=== PATIENT | male | born 1985 | race Caucasian/White ===

== ENCOUNTER 2017-09-04 15:48 | Inpatient (IN) | payer BC ==
--- OUTSIDE RECORDS SUMMARY | 2017-09-04 15:50 | XMS REPORT ---
:1985 [facility] [address] [place] [address] Care Team Providers Name Role Phone UNKNOWN, REFFERING Primary Care Provider Unavailable NAMAN MEJIA M.D. Unavailable Unavailable Problems This patient has no known problems. Allergies, Adverse Reactions, Alerts This patient has no known allergies or adverse reactions. Medications This patient has no known medications. Encounters Start End Encounter Admission Attending Care Care Encounter Date/Time Date/Time Type Type Clinicians Facility Department ID 2017-05-22 2017-06-01 [id number] 03:01:00 13:18:00 NAMAN Craven M.D. Results Test Description Test Time Test Comments Text Results Atomic Results Result Comments RPR, Qual 2017-05-22 14:15:00 Test Item Value Reference Range Comments RPR (test code=RPR) Non-Reactive Non-Reactive Thyroid Stimulating Hormone (TSH)2017-05-22 13:03:00 Test Item Value Reference Range Comments TSH (test code=TSH) 1.67 mIU/mL 0.270-4.200 Lipid [id number] 12:55:00 Test Item Value Reference Range Comments Cholesterol (test 234 mg/dL 0-200 code=CHOL) Triglycerides (test 185 mg/dL 9-200 code=TRIG) HDL (test code=HDL) 51 mg/dL 40-60 Chol/HDL (test 4.6 Ratio 0.0-5.0 code=CHOLPHDL) LDL, Calculated (test 146 0-130 (NOTE)RISK OF HEART code=LDLC) DISEASEPublished by Palestinian Heart AssociationAnalyte Optimal Boderline Increased RiskCHOL <200 200-239 >240TRIG <150 150-199 >200HDL Male: >60 <40HDL Female: >60 <50LDL <100 130-159 >160LDL NEAR OPTIMAL IS 100-129 VLDL (test code=VLDL) 37 mg/dL 5-40 LDL/HDL (test code=LDLPHDL) 3 [id number] 01:55:00 Test Item Value Reference Range Comments Amphetamine (test Negative Negative For diagnostic purposes code=AMPH) only, positive results should always be assessedin conjunctionwith the patient's medical history,clinical examination and otherfindings.To fulfill legal requirements, a more specific alternate chemical methodmust be used inorder to obtain a Confirmed analytical result. GC/MS is the preferred confirmatory method. Barbiturates (test Negative Negative code=MUSTAPHA) Benzodiazepine (test POSITIVE Negative code=JUVENTINO) Cocaine (test code=COCA) Negative Negative Methadone (test code=MTHD) Negative Negative Opiates (test code=OPIA) Negative Negative PCP (test code=PCP) Negative Negative Propoxyphene (test Negative Negative code=PROPOX) THC (test code=THC) Negative Negative Alcohol, Urine (test <0.01 g/dL 0.00-0.01 code=ETOHU) Comprehensive Metabolic [id number] 01:30:00 Test Item Value Reference Range Comments Sodium (test code=NA) 142 mmol/L 135-145 Potassium (test code=K) 4.4 mmol/L 3.5-5.1 Chloride (test code=CL) 105 mmol/L 98-105 Carbon Dioxide (test 29 mmol/L 22-29 code=CO2) Glucose (test code=GLU) 96 mg/dL 70-115 Blood Urea Nitrogen 16 mg/dL 6-20 (test code=BUN) Creatinine (test 0.9 mg/dL 0.7-1.2 code=CREAT) Calcium (test code=CA) 9.9 mg/dL 8.3-10.5 Prot Total (test 7.1 g/dL 6.4-8.3 code=TP) Albumin (test code=ALB) 4.5 g/dL 3.5-5.2 A/G Ratio (test 1.7 Ratio code=AGRATIO) Globulin (test 2.6 2.9-3.1 code=GLOB) Bili Total (test <0.1 mg/dL 0.1-0.9 code=TBIL) Alk Phos (test 91 U/L 40-129 code=APHOS) AST (test code=AST) 14 U/L 1-40 ALT (test code=ALT) 18 U/L 1-41 BUN/Creatinine Ratio 17.8 (test code=BCRATIO) Anion Gap (test 8 mmol/L 7-16 code=AGAP) Estimated GFR (test >60 eGFR (estimated Glomerular code=GFR) mL/min/1.73m2 Filtration Rate) is an estimated value,calculated from the patient's serum creatinine using the MDRD equation.It is NOT the patient's actual GFR. The eGFR provides a more clinicallyuseful measure of kidney disease than serum creatinine alone.This calculation takes sex and race into account, if the informationis provided. If the race is not provided, and the patient isAfrican-Palestinian, multiply by 1.212. If sex is not provided, and thepatient is female, multiply by 0.742. Results for patients <18 years ofage have not been validated by the MDRD study and should be interpretedwith caution.eGFR Result Interpretation:eGFR > or=60 is in the Normal RangeeGFR < 60 may mean kidney diseaseeGFR < 15 may mean kidney failureRanges recommended by the National Kidney Foundation,http://nkdep.ni h.gov Alcohol/Ethanol, [id number] 01:21:00 Test Item Value Reference Range Comments Alcohol, Ethyl (test <0.01 g/dL 0.00-0.01 Intoxicated 0.080 g/dL or code=ETOH) more Urinalysis [id number] 01:15:00 Test Item Value Reference Range Comments Color (test code=COLOR) Yellow Yellow,Straw,Pl yellow Clarity (test code=CLAR) Clear Clear Specific [place] (test code=SPGR) 1.024 1.001-1.035 pH (test code=PH) 7.0 5.0-9.0 Ketone (test code=KET) Negative mg/dL Negative Glucose (test code=GLUCUR) Negative mg/dL Negative Protein (test code=PROT) Negative mg/dL Negative Bilirubin (test code=BILI) Negative mg/dL Negative Occult Blood (test code=UDOB) Negative Negative Urobilinogen (test code=UROB) 0.2 mg/dL 0.2-1.0 Nitrite (test code=NIT) Negative Negative Leuk Esterase (test code=LEUK) Negative Negative Micros Exam (test code=MEXAM) Not indicated CBC with [id number] 01:15:00 Test Item Value Reference Range Comments WBC (test code=WBC) 10.5 K/cumm 4.4-10.5 RBC (test code=RBC) 5.29 M/cumm 4.10-5.70 Hemoglobin (test code=HGB) 15.1 gm/dL 13.4-17.4 Hematocrit (test code=HCT) 45.7 % 38.7-52.0 MCV (test code=MCV) 86.5 fL 80-100 MCH (test code=MCH) 28.6 pg 27.0-32.5 MCHC (test code=MCHC) 33.0 g/dL 32.0-37.5 RDW (test code=RDW) 12.9 % 11.5-14.5 Platelet Count (test code=PLTCT) 278 K/cumm 140-440 MPV (test code=MPV) 9.7 fL Diff Method (test code=DIFFM) Auto Neutrophil (test code=NEUT) 58.2 % 36-70 Lymphocyte (test code=LYMPH) 28.5 % 12-44 Monocyte (test code=MONO) 6.8 % 0-11 Eosinophil (test code=EOS) 5.8 % 0-7 Basophil (test code=BASO) 0.6 % 0-2 Neutro Abs (test code=ANEUT) 6.1 K/cumm 1.6-7.4 Lymph Abs (test code=ALYMPH) 3.0 K/cumm 0.5-4.6 [place] Abs (test code=AMONO) 0.7 K/cumm 0.0-1.2 Eos Abs (test code=AEOS) 0.61 K/cumm 0.00-0.74 Baso Abs (test code=ABASO) 0.1 K/cumm 0.00-0.21
--- NOTE | 2017-09-04 16:31 | RAD REPORT ---
EXAM DESCRIPTION: RAD - Chest Single View - 09/04/2017 4:11 pm CLINICAL HISTORY: Fever COMPARISON: None. TECHNIQUE: AP portable chest image was obtained 1607 hours . FINDINGS: Lung volumes are low. No peripheral mass or consolidation. Failure is not suspected. Heart and vasculature are normal. No measurable pleural effusion and no pneumothorax. No gross bony abnorm ality seen. No acute aortic findings suspected. IMPRESSION: Shallow inspiration film without acute cardiopulmonary finding.
[2017-09-04] MEDS ORDERED: PROMETHAZINE 25 MG/ML VIAL ONE (16:35)
[2017-09-04] MEDS ORDERED: NA CHLORIDE 0.9% 2,000 ML ONE (16:36)
[2017-09-04] MEDS ORDERED: ACETAMINOPHEN 500 MG TAB ONE (16:36)
--- NOTE | 2017-09-04 16:39 | EKG ---
Test Date: 2017-09-04 Test Time: 14:51:40 Pulp House Supervisor: JEROME MEASUREMENT RESULTS: Intervals: Rate: 135 WA: 134 QRSD: 78 QT: 280 QTc: 420 [place]: P: 45 WA: 134 QRS: 7 T: -4 INTERPRETIVE STATEMENTS: Sinus tachycardia Otherwise normal ECG Compared to ECG 03/13/2016 22:33:27 Sinus rhythm no longer present Electronically Signed On 09-04-17 16:38:29 CDT by David Gastelum
[2017-09-04 17:16] LABS: Absolute Lymphocytes (CBC) 0.7 K/uL (0.7-4.9); Absolute Neutrophil 25.7 K/uL (1.8-8.0); Basophils % 0.1 % (0-1.3); Lymphocytes % 2.6 % (15.3-44.8); MCH 28.1 pg (27.0-35.0); MCV 85.2 fL (80-100); MPV 8.6 fL (7.6-11.3); RBC Red Blood Cell Count 4.93 M/uL (4.33-5.43)
[2017-09-04 17:18] LABS: Potassium 4.6 mEq/L (3.6-5.0)
[2017-09-04 17:25] LABS: Albumin 3.2 g/dL (3.2-5.5); Bilirubin Direct 0.4 mg/dL (0-0.2); Protein, Total 5.8 g/dL (6.0-8.3)
[2017-09-04 17:42] LABS: Blood Morphology Comment NOT SEEN (NOT SEEN); Platelet Estimate ADEQ
--- NOTE | 2017-09-04 18:22 | RAD REPORT ---
EXAM DESCRIPTION: CT - Abdomen Pelvis Wo Contrast - 09/04/2017 6:06 pm CLINICAL HISTORY: Abdominal pain nausea and vomiting since yesterday COMPARISON: 2013 TECHNIQUE: Computed axial tomography of the abdomen and pelvis was obtained. IV and oral contrast we re not requested. All CT scans are performed using dose optimization technique as appropriate and may include automated exposure control or mA/KV adjustment according to patient size. FINDINGS: The evaluation of solid organs, vessels and bowel is limited secondary to the lack of con trast administration. The liver, spleen, pancreas, adrenals and kidneys appear grossly normal. The appendix has been removed. There is no evidence of diverticulitis. A small left inguinal hernia contains fat IMPRESSION: No acute abnormality is displayed.
[2017-09-04 18:39] LABS: Barbiturates NEGATIVE; Benzodiazepines POSITIVE; Cocaine NEGATIVE; METHAMPHETAM NEGATIVE; Opiates POSITIVE; Phencyclidine NEGATIVE; THC Cannibis NEGATIVE
[2017-09-04 18:44] LABS: Urine Blood NEGATIVE (NEG); Urine Glucose NEGATIVE (NEG); Urine Protein 1+ (NEG); Urine Specific Gravity <1.005 (1.005-1.030)
[2017-09-04] MEDS ORDERED: NA CHLORIDE 0.9% 500 ML ONE (19:17)
[2017-09-04] MEDS ORDERED: VANCOMYCIN/NS 1 gm 1 GM/250 ML BAG ONE (19:17)
[2017-09-04] MEDS ORDERED: PIPERACILLIN-TAZO-DEXTROSE,ISO 3.375 GM/50 ML BAG ONE (19:18)
[2017-09-04 19:22] LABS: Arterial Blood Carboxyhemoglob 0.8 % (0-1.5); Blood Gas Oxyhemoglobin 93.6 % (94-97); Blood O2 Saturation 95.1 % (92-98.5)
[2017-09-04] MEDS ORDERED: NOREPINEPHRINE 4mg/D5W 250mL 4 MG/250 ML BAG IV ONE (20:17)
[2017-09-04] MEDS ORDERED: FENTANYL CITR 100 MCG/2 ML ONE (20:47)
--- NOTE | 2017-09-04 20:50 | ER ---
Nurse's Notes [facility] Name: Gildardo López Age: 31 yrs Sex: Male : 1985 Arrival Date: 09/04/2017 Time: 15:56 Bed 2 Private MD: Diagnosis: Bacteremia;Sepsis;Hypotension Presentation: 09/04 16:00 Presenting complaint: EMS states: N/V since yesterday. Transition of care: patient was kb1 not received from another setting of care. Onset of symptoms was September 03, 2017 at 12:00. Care prior to arrival: Medication(s) given: zofran 4 mg, IV initiated. 18 GA, in the left antecubital area. 16:00 Method Of Arrival: EMS kb1 16:00 Acuity: AYE 3 kb1 Triage Assessment: 16:04 General: Appears uncomfortable, Behavior is cooperative. Pain: Complains of pain in kb1 headache. Neuro: Level of Consciousness is awake, alert, obeys commands, Oriented to person, place, time, situation. Cardiovascular: Patient's skin is warm and dry. Rhythm is sinus tachycardia. Respiratory: Respiratory effort is even, unlabored, Respiratory pattern is regular, symmetrical. GI: Reports nausea, vomiting. : No signs and/or symptoms were reported regarding the genitourinary system. Historical: - Allergies: 16:04 No Known Allergies; kb1 - Home Meds: 16:04 clonazepam 2 mg oral tab Q8H [Active]; Seroquel 400 mg oral tab 2 times per day kb1 [Active]; trazodone 100 mg Oral tab [Active]; gabapentin 300 mg oral cap 3 times per day [Active]; - PMHx: 16:04 Anxiety; Schizophrenia; Seizures; kb1 - PSHx: 16:04 Sinus; kb1 - Immunization history:: Flu vaccine is up to date. - Social history:: Smoking status: Patient uses tobacco products, chewing tobacco. Screenin:06 Abuse screen: Denies threats or abuse. Nutritional screening: No deficits noted. kb1 Tuberculosis screening: No symptoms or risk factors identified. Fall Risk Assessment: 16:06 Reassessment: No changes from previously documented assessment. kb1 17:00 Reassessment: Patient and/or family updated on plan of care and expected duration. Pain kb1 level reassessed. Patient is alert, oriented x 3, equal unlabored respirations, skin warm/dry/pink. 18:15 Reassessment: Patient appears in no apparent distress at this time. Patient and/or kb1 family updated on plan of care and expected duration. Pain level reassessed. Patient is alert, oriented x 3, equal unlabored respirations, skin warm/dry/pink. 18:40 Reassessment: Patient appears in no apparent distress at this time. Devin DAWSON made aware kb1 of blood pressure. 19:10 Reassessment: Patient and/or family updated on plan of care and expected duration. Pain kb1 level reassessed. Patient is alert, oriented x 3, equal unlabored respirations, skin warm/dry/pink. 19:46 Reassessment: Patient appears in no apparent distress at this time. kb1 20:00 General: Appears uncomfortable, Behavior is calm, cooperative, appropriate for age, aj1 Reports chills for 2-3 days, fever for 2-3 days, feeling ill for 2-3 days. Pain: Complains of pain in head Pain does not radiate. Pain currently is 8 out of 10 on a pain scale. Quality of pain is described as aching, Pain began 2-3 days ago. Neuro: Level of Consciousness is awake, alert, obeys commands, Oriented to person, place, time, situation, Speech is normal, Facial symmetry appears normal, Reports headache Denies blurred vision dizziness, photophobia. Cardiovascular: Reports palpitations, States that his heart rate went up to 160 Denies chest pain, Heart tones S1 S2 present Patient's skin is warm and dry. Rhythm is sinus rhythm Chest pain is denied. Respiratory: Airway is patent Respiratory effort is even, unlabored, Respiratory pattern is regular, symmetrical, Breath sounds are clear bilaterally. Denies cough, shortness of breath. GI: No signs and/or symptoms were reported involving the gastrointestinal system. Abdomen is flat, non-distended, Abd is soft and non tender X 4 quads. Patient currently denies diarrhea, nausea, vomiting. : No signs and/or symptoms were reported regarding the genitourinary system. Denies burning with urination. EENT: No signs and/or symptoms were reported regarding the EENT system. Derm: No signs and/or symptoms reported regarding the dermatologic system. Skin is flushed. Musculoskeletal: No signs and/or symptoms reported regarding the musculoskeletal system. Circulation, motion, and sensation intact. 21:00 Reassessment: Patient appears in no apparent distress at this time. No changes from aj1 previously documented assessment. Patient and/or family updated on plan of care and expected duration. Pain level reassessed. Patient is alert, oriented x 3, equal unlabored respirations, skin warm/dry/pink. 22:42 Reassessment: Patient and/or family updated on plan of care and expected duration. Pain ea level reassessed. Patient is alert, oriented x 3, equal unlabored respirations, skin warm/dry/pink. 23:00 Reassessment: Patient and/or family updated on plan of care and expected duration. Pain ea level reassessed. Patient is alert, oriented x 3, equal unlabored respirations, skin warm/dry/pink. 23:15 Reassessment: Patient and/or family updated on plan of care and expected duration. Pain ea level reassessed. Patient is alert, oriented x 3, equal unlabored respirations, skin warm/dry/pink. Vital Signs: 16:04 BP 136 / 84; Pulse 137; Resp 20; Temp 103.3; Pulse Ox 96% on R/A; Weight 83.91 kg; kb1 Height 5 ft. 8 in. (172.72 cm); Pain 6/10; 17:00 BP 91 / 61; Pulse 120; Resp 26; Pulse Ox 97% ; kb1 17:04 BP 91 / 61; Pulse 119; Resp 26; Pulse Ox 97% on R/A; ae1 18:10 Temp 100.5; kb1 18:14 BP 90 / 61; Pulse 108; Resp 24; Pulse Ox 97% ; kb1 18:41 BP 86 / 57; Pulse 105; Resp 24; Pulse Ox 94% ; kb1 19:19 BP 82 / 58; Pulse 94; Resp 24; Pulse Ox 97% ; kb1 19:54 BP 81 / 47; Pulse 93; Resp 24; Pulse Ox 100% on R/A; aj 20:10 BP 84 / 57; Pulse 92; Resp 30; Pulse Ox 99% ; aj1 20:20 BP 90 / 60; Pulse 92; Resp 28; Pulse Ox 98% ; aj1 20:39 BP 113 / 80; Pulse 80; Resp 22; Pulse Ox 99% ; aj1 20:39 Temp 98.0(O); aj1 21:08 BP 108 / 79; Pulse 81; Resp 27; Pulse Ox 97% on R/A; aj1 21:16 BP 112 / 77; Pulse 90; Resp 17; Pulse Ox 98% on R/A; aj 21:44 BP 100 / 65; Pulse 91; Resp 18; Pulse Ox 96% on R/A; aj 22:34 BP 101 / 55; Pulse 92; Resp 27; Temp 98.2; Pulse Ox 98% on R/A; oe 23:26 BP 100 / 62; Pulse 90; Resp 20; Temp 98.0; Pulse Ox 98% on R/A; ea 16:04 Body Mass Index 28.13 (83.91 kg, 172.72 cm) kb1 ED Course: 15:56 Patient arrived in ED. kt1 15:56 Devin Tang PA is PHCP. jr8 15:56 Travis Small MD is Attending Physician. jr8 15:59 Jordyn De Guzman RN is Primary Nurse. kb1 16:01 Triage completed. kb1 16:04 Arm band placed on. kb1 16:06 Patient has correct armband on for positive identification. Bed in low position. Call kb1 light in reach. Side rails up X2. rental agent on. Pulse ox on. NIBP on. 16:06 No provider procedures requiring assistance completed. Maintain EMS IV. Good blood kb1 return noted. Site clean \T\ dry. Gauge \T\ site: 18g Left AC. 16:09 X-ray completed. Portable x-ray completed in exam room. Patient tolerated procedure ag1 well. 16:12 XRAY Chest (1 view) In Process Unspecified. EDMS 18:[address] via wheelchair. jj2 18:06 CT completed. Patient tolerated procedure well. Patient moved back from CT. jj2 18:06 CT Abd/Pelvis - Without Cont In Process Unspecified. EDMS 19:47 Report given to Melina VAZ. kb1 20:33 Assisted provider with central line placement. Set up central line tray. Triple lumen aj line placed in right femoral. Line placed by Devin DAWSON Placement verified by blood return, Dressed with Tegaderm, Blood was collected. Patient tolerated well. Before procedure, did Practitioner(s) obtain informed consent? Yes. Patient \T\ family education about procedure, CLABSI prevention and S/S of infection? Yes. Time-out/Briefing performed prior to start of procedure? Yes. Was handwashing/sanitizing done immediately prior to procedure? Yes. Was patient positioned to in a way to prevent air embolism? Yes. Was procedure site sterilized? Yes, with chlorhexidine. Was the site allowed to dry? Yes. Was local anesthetic and/or sedation utilized? Yes. During the procedure, did the Practitioner(s) maintain a sterile field? Yes. Were unused ports clamped during insertion? Yes. Was a 2nd qualified MD obtained after 3 unsuccessful insertion attempts? No. Was blood aspirated from each lumen? Yes. After the procedure, did the Practitioner(s) clean the site and apply a sterile dressing? Yes. 20:49 Jose Cazares MD is Hospitalizing Provider. jr8 23:00 Patient admitted, IV remains in place. ea Administered Medications: 16:49 Drug: Tylenol 1000 mg Route: PO; kb1 18:26 Follow up: Response: Temperature is decreased [facility] 16:49 Drug: Phenergan 12.5 mg Route: IVP; Site: left antecubital; kb1 18:26 Follow up: Response: Nausea is decreased [facility] 16:49 Drug: NS 0.9% (20 ml/kg) 20 ml/kg Route: IV; Rate: 1 bolus; Site: left antecubital; kb1 21:19 Follow up: IV Status: Completed infusion; IV Intake: 1600ml aj 19:23 Drug: NS 0.9% 500 ml Route: IV; Rate: bolus; Site: left antecubital; kb1 21:19 Follow up: Response: No adverse reaction; IV Status: Completed infusion; IV Intake: aj 500ml 19:23 Drug: Zosyn 3.375 grams Route: IVPB; Infused Over: 30 mins; Site: left antecubital; kb1 21:19 Follow up: Response: No adverse reaction; IV Status: Completed infusion; IV Intake: aj 200ml 19:56 Drug: vancoMYCIN 1 grams Route: IVPB; Infused Over: 2 hrs; Site: left antecubital; aj 20:25 Drug: Levophed (4 mg/250 mL D5W 4 mcg/min Route: IV; Rate: calculated rate; Site: right aj femoral; 20:31 Follow up: Rate change 10 mcg/min aj 20:34 Drug: fentaNYL (PF) 50 mcg Route: IVP; Site: right femoral; aj1 21:01 Follow up: Response: No adverse reaction aj1 20:45 Drug: NS 0.9% 1000 ml Route: IV; Rate: 125 ml/hr; Site: right femoral; aj1 Intake: 21:19 IV: 500ml; Total: 500ml. aj 21:19 IV: 200ml; Total: 700ml. aj 21:19 IV: 1600ml; Total: 2300ml. aj Outcome: 20:49 Decision to Hospitalize by Provider. jr8 21:00 Instructed on the need for admit. ea 23:04 Patient left the ED. tc3 23:04 Admitted to ICU accompanied by nurse, via stretcher, room 7, on monitor, with chart, ea Report called to Receiving Nurse 23:04 Condition: stable Signatures: Dispatcher [employer] EDMS Latoya Webster RN RN aj1 Anya Newell, RN RN Mauricio Lynn Krysta RN RN kt1 Devin Tang PA PA jr8 Chantell Acuna Andrea RN RN ae1 Stas Ricks Teresa RN RN tc3 Melina Gore RN Jordyn Gonzalez ea, RN RN kb1 Corrections: (The following items were deleted from the chart) 23:28 23:15 Reassessment: Patient and/or family updated on plan of care and expected ea duration. Pain level reassessed. Patient is alert, oriented x 3, equal unlabored respirations, skin warm/dry/pink. ea
--- NOTE | 2017-09-04 20:50 | EDPHYS ---
Physician Documentation [facility] Name: Gildardo López Age: 31 yrs Sex: Male : 1985 Arrival Date: 09/04/2017 Time: 15:56 Bed 2 Private MD: ED Physician Travis Small HPI: 09/04 16:00 This 31 yrs old Male presents to ER via Unassigned with complaints of fever. jr8 16:00 The patient reports fever, with an emergency department temperature of 101 degrees jr8 Fahrenheit. Onset: The symptoms/episode began/occurred acutely, 2 day(s) ago. Modifying factors: there are no obvious modifying factors. Associated signs and symptoms: Pertinent positives: chills, headache, vomiting. Severity of symptoms: At their worst the symptoms were moderate in the emergency department the symptoms are unchanged. The patient has not experienced similar symptoms in the past. The patient has not recently seen a physician. Historical: - Allergies: 16:04 No Known Allergies; kb1 - Home Meds: 16:04 clonazepam 2 mg oral tab Q8H [Active]; Seroquel 400 mg oral tab 2 times per day kb1 [Active]; trazodone 100 mg Oral tab [Active]; gabapentin 300 mg oral cap 3 times per day [Active]; - PMHx: 16:04 Anxiety; Schizophrenia; Seizures; kb1 - PSHx: 16:04 Sinus; kb1 - Immunization history:: Flu vaccine is up to date. - Social history:: Smoking status: Patient uses tobacco products, chewing tobacco. ROS: 16:00 Eyes: Negative for injury, pain, redness, and discharge, ENT: Negative for injury, jr8 pain, and discharge, Neck: Negative for injury, pain, and swelling, Cardiovascular: Negative for chest pain, palpitations, and edema, Respiratory: Negative for shortness of breath, cough, wheezing, and pleuritic chest pain, Back: Negative for injury and pain, MS/Extremity: Negative for injury and deformity, Skin: Negative for injury, rash, and discoloration. 16:00 Constitutional: Positive for body aches, chills, fever. 16:00 Abdomen/GI: Positive for nausea and vomiting, Negative for abdominal pain, diarrhea, constipation, abdominal cramps, abdominal distension, hematemesis, black/tarry stool, rectal pain, rectal bleeding, bowel incontinence, flatulence. 16:00 Neuro: Positive for headache, Negative for altered mental status, dizziness, gait disturbance, hearing loss, loss of consciousness, numbness, seizure activity, speech changes, syncope, near syncope, tingling, tinnitus, tremor, visual changes, weakness. Exam: 16:00 Head/Face: Normocephalic, atraumatic. Eyes: Pupils equal round and reactive to light, jr8 extra-ocular motions intact. Lids and lashes normal. Conjunctiva and sclera are non-icteric and not injected. Cornea within normal limits. Periorbital areas with no swelling, redness, or edema. ENT: Nares patent. No nasal discharge, no septal abnormalities noted. Tympanic membranes are normal and external auditory canals are clear. Oropharynx with no redness, swelling, or masses, exudates, or evidence of obstruction, uvula midline. Mucous membranes moist. Neck: Trachea midline, no thyromegaly or masses palpated, and no cervical lymphadenopathy. Supple, full range of motion without nuchal rigidity, or vertebral point tenderness. No Meningismus. Respiratory: Lungs have equal breath sounds bilaterally, clear to auscultation and percussion. No rales, rhonchi or wheezes noted. No increased work of breathing, no retractions or nasal flaring. Abdomen/GI: Soft, non-tender, with normal bowel sounds. No distension or tympany. No guarding or rebound. No evidence of tenderness throughout. Back: No spinal tenderness. No costovertebral tenderness. Full range of motion. Skin: Warm, dry with normal turgor. Normal color with no rashes, no lesions, and no evidence of cellulitis. MS/ Extremity: Pulses equal, no cyanosis. Neurovascular intact. Full, normal range of motion. Neuro: Awake and alert, GCS 15, oriented to person, place, time, and situation. Cranial nerves II-XII grossly intact. Motor strength 5/5 in all extremities. Sensory grossly intact. Cerebellar exam normal. Normal gait. 16:00 Cardiovascular: Rate: tachycardic, Rhythm: regular, Pulses: Pulses are 2+ in right radial artery and left radial artery. Heart sounds: normal, normal S1and S2, no S3 or S4, no murmur, no rub, no gallop, Edema: is not appreciated, JVD: is not appreciated. Vital Signs: 16:04 BP 136 / 84; Pulse 137; Resp 20; Temp 103.3; Pulse Ox 96% on R/A; Weight 83.91 kg; kb1 Height 5 ft. 8 in. (172.72 cm); Pain 6/10; 17:00 BP 91 / 61; Pulse 120; Resp 26; Pulse Ox 97% ; kb1 17:04 BP 91 / 61; Pulse 119; Resp 26; Pulse Ox 97% on R/A; ae1 18:10 Temp 100.5; kb1 18:14 BP 90 / 61; Pulse 108; Resp 24; Pulse Ox 97% ; kb1 18:41 BP 86 / 57; Pulse 105; Resp 24; Pulse Ox 94% ; kb1 19:19 BP 82 / 58; Pulse 94; Resp 24; Pulse Ox 97% ; kb1 19:54 BP 81 / 47; Pulse 93; Resp 24; Pulse Ox 100% on R/A; aj 20:10 BP 84 / 57; Pulse 92; Resp 30; Pulse Ox 99% ; aj1 20:20 BP 90 / 60; Pulse 92; Resp 28; Pulse Ox 98% ; aj1 20:39 BP 113 / 80; Pulse 80; Resp 22; Pulse Ox 99% ; aj1 20:39 Temp 98.0(O); aj1 21:08 BP 108 / 79; Pulse 81; Resp 27; Pulse Ox 97% on R/A; aj1 21:16 BP 112 / 77; Pulse 90; Resp 17; Pulse Ox 98% on R/A; aj 21:44 BP 100 / 65; Pulse 91; Resp 18; Pulse Ox 96% on R/A; aj 22:34 BP 101 / 55; Pulse 92; Resp 27; Temp 98.2; Pulse Ox 98% on R/A; oe 23:26 BP 100 / 62; Pulse 90; Resp 20; Temp 98.0; Pulse Ox 98% on R/A; ea 16:04 Body Mass Index 28.13 (83.91 kg, 172.72 cm) kb Procedures: 20:28 Central Line: the site was prepped with Betadine, in sterile fashion, a triple lumen jr8 catheter was inserted, in the right femoral vein, in 1 attempts. placement was verified, by blood return, the site was dressed with 4X4s, Tegaderm, foam tape, using sterile technique, the patient tolerated the procedure, well. MDM: 15:56 Patient medically screened. jr8 20:48 Data reviewed: vital signs, nurses notes, lab test result(s), EKG, radiologic studies, jr8 CT scan, plain films, and as a result, I will admit patient. Data interpreted: Pulse oximetry: on room air is 99 %. Interpretation: normal. Counseling: I had a detailed discussion with the patient and/or guardian regarding: the historical points, exam findings, and any diagnostic results supporting the discharge/admit diagnosis, lab results, radiology results, the need for further work-up and treatment in the hospital. 21:50 Sepsis 6 hour Focused Exam: Focused Assessment performed: September 04, 2017 at 21:50 jr8 Heart: Regular rate/rhythm noted. Lungs: Noted to be clear bilaterally. Capillary refill examination performed. Capillary refill noted to be < 2 seconds. Peripheral pulse evaluation performed. Radial Peripheral pulses noted to be 2+ slightly diminished. Skin examination performed. Skin noted to be pink. Current vital signs reviewed: Yes. Neuro: Neurological examination improved from previous exam. Cardio: Cardiovascular examination improved from previous exam. Heart rate and blood pressure have improved. Respiratory: Respiratory exam improved from previous exam. 09/04 15:58 Order name: Basic Metabolic Panel; Complete Time: 17:38 [facility] 09/04 15:58 Order name: CBC with Diff; Complete Time: 17:54 [facility] 09/04 15:58 Order name: Hepatic Function; Complete Time: 17:38 [facility] 09/04 15:58 Order name: Urine Drug Screen; Complete Time: 18:49 8 09/04 15:58 Order name: Lipase; Complete Time: 17:38 8 09/04 15:58 Order name: Flu; Complete Time: 17:19 8 09/04 15:58 Order name: CPK; Complete Time: 17:38 [facility] 09/04 15:58 Order name: [place] Screen Profile; Complete Time: 17:38 8 09/04 15:58 Order name: Strep; Complete Time: 17:19 [facility] 09/04 17:20 Order name: Throat Culture [facility] 09/04 17:24 Order name: Manual Differential; Complete Time: 17:54 [facility] 09/04 18:36 Order name: Urine Dipstick--Ancillary (enter results); Complete Time: 18:49 [facility] 09/04 18:50 Order name: ABG; Complete Time: 19:50 [facility] 09/04 18:53 Order name: Blood Culture Adult (2) [facility] 09/04 18:53 Order name: Lactate; Complete Time: 19:50 [facility] 09/04 19:50 Order name: Hepatitis Panel [facility] 09/04 21:49 Order name: ABG Arterial Blood Gas EDMS 09/04 21:50 Order name: Basic Metabolic Panel EDMS 09/04 21:50 Order name: Basic Metabolic Panel EDMS 09/04 21:50 Order name: Basic Metabolic Panel EDMS 09/04 21:50 Order name: Basic Metabolic Panel EDMS 09/04 21:50 Order name: CBC with Automated Diff EDMS 09/04 21:50 Order name: CBC with Automated Diff EDMS 09/04 21:50 Order name: CBC with Automated Diff EDMS 09/04 21:50 Order name: CBC with Automated Diff EDMS 09/04 21:50 Order name: Lactate EDMS 09/04 21:50 Order name: Lactate EDMS 09/04 21:50 Order name: Lactate EDMS 09/04 21:50 Order name: Lactate EDMS 09/04 21:50 Order name: Magnesium EDMS 09/04 15:58 Order name: EKG; Complete Time: 15:59 [facility] 09/04 15:58 Order name: EKG - Nurse/Tech; Complete Time: 16:11 [facility] 09/04 15:58 Order name: IV Saline Lock; Complete Time: 17:01 [facility] 09/04 15:58 Order name: Labs collected and sent; Complete Time: 17:01 [facility] 09/04 15:58 Order name: Urine Dipstick-Ancillary (obtain specimen); Complete Time: 18:27 [facility] 09/04 15:58 Order name: XRAY Chest (1 view); Complete Time: 16:32 [facility] 09/04 17:39 Order name: CT Abd/Pelvis - Without Cont; Complete Time: 18:49 [facility] 09/04 20:31 Order name: Central Line Kit; Complete Time: 21:01 09/04 21:49 Order name: CONS Infection Control Cons EDMS 09/04 21:49 Order name: Regular EDMS 09/04 21:50 Order name: Social Service Consult EDMS 09/04 21:50 Order name: Magnesium EDMS 09/04 21:50 Order name: Magnesium EDMS 09/04 21:50 Order name: Magnesium EDMS 09/04 21:50 Order name: Phosphorus EDMS 09/04 21:50 Order name: Phosphorus EDMS 09/04 21:50 Order name: Phosphorus EDMS 09/04 21:50 Order name: Phosphorus EDMS 09/04 21:50 Order name: Lactate EDMS 09/04 21:50 Order name: Lactate EDMS 09/04 21:50 Order name: Lactate EDMS Administered Medications: 16:49 Drug: Tylenol 1000 mg Route: PO; kb1 18:26 Follow up: Response: Temperature is decreased kb1 16:49 Drug: Phenergan 12.5 mg Route: IVP; Site: left antecubital; kb1 18:26 Follow up: Response: Nausea is decreased 1 16:49 Drug: NS 0.9% (20 ml/kg) 20 ml/kg Route: IV; Rate: 1 bolus; Site: left antecubital; kb1 21:19 Follow up: IV Status: Completed infusion; IV Intake: 1600ml aj 19:23 Drug: NS 0.9% 500 ml Route: IV; Rate: bolus; Site: left antecubital; kb1 21:19 Follow up: Response: No adverse reaction; IV Status: Completed infusion; IV Intake: aj 500ml 19:23 Drug: Zosyn 3.375 grams Route: IVPB; Infused Over: 30 mins; Site: left antecubital; kb1 21:19 Follow up: Response: No adverse reaction; IV Status: Completed infusion; IV Intake: aj 200ml 19:56 Drug: vancoMYCIN 1 grams Route: IVPB; Infused Over: 2 hrs; Site: left antecubital; aj 20:25 Drug: Levophed (4 mg/250 mL D5W 4 mcg/min Route: IV; Rate: calculated rate; Site: right aj femoral; 20:31 Follow up: Rate change 10 mcg/min aj 20:34 Drug: fentaNYL (PF) 50 mcg Route: IVP; Site: right femoral; aj1 21:01 Follow up: Response: No adverse reaction aj1 20:45 Drug: NS 0.9% 1000 ml Route: IV; Rate: 125 ml/hr; Site: right femoral; aj1 Disposition: 03/13 14:07 Co-signature as Attending Physician, Travis Small MD I agree with the assessment and kdr plan of care. Disposition: 09/04/17 20:49 Hospitalization ordered by Jose Cazares for Inpatient Admission. Preliminary diagnosis are Bacteremia, Sepsis, Hypotension. - Bed requested for Intensive Care Unit. - Status is Inpatient Admission. tc3 - Condition is Fair. - Problem is new. - Symptoms have improved. UTI on Admission? No Critical care time excluding procedures: 09/04 21:50 Critical care time: Bedside Care: 20 minutes, Consultation: 10 minutes, Family jr8 Intervention: 10 minutes. Total time: 40 minutes Signatures: Dispatcher [employer] EDMS Latoya Webster RN RN aj1 Oneyda Restrepo, RN Anya Ramirez RN Travis Li MD MD kdr Roszak, Josh, PA PA jr8 Sana Higuera RN RN tc3 Jordyn De Guzman RN RN kb1
[2017-09-04] MEDS ORDERED: NA CHLORIDE 0.9% 1,000 ML ONE (21:00)
[2017-09-04] MEDS ORDERED: NOREPINEPHRINE 4 MG in D5W 250 ML IV PRN (21:45)
[2017-09-04] MEDS ORDERED: ONDANSETRON 4 MG/2 ML VIAL IV PRN (21:45)
[2017-09-04] MEDS: VANCOMYCIN 1.5 GM in NA CHLORIDE 0.9% 500 ML IVPB SCH (22:00)
[2017-09-04] MEDS: NA CHLORIDE 0.9% 1,000 ML IV SCH (23:10)
[2017-09-05] MEDS ORDERED: NA CHLORIDE 0.9% 1,000 ML IV ONE ×3 (02:31→04:22)
[2017-09-05] MEDS: FENTANYL CITR 100 MCG/2 ML IV PRN ×5 (02:44→21:02)
[2017-09-05] MEDS ORDERED: NOREPINEPHRINE 4mg/D5W 250mL 4 MG/250 ML BAG IV ONE (03:14)
--- NOTE | 2017-09-05 04:32 | P.HP ---
Certification for Inpatient Patient admitted to: Inpatient With expected LOS: >2 Midnights Patient will require the following post-hospital care: None Practitioner: I am a practitioner with admitting privileges, knowledge of patient current condition, hospital course, and medical plan of care. Services: Services provided to patient in accordance with Admission requirements found in Title 42 Section 412.3 of the Code of Federal Regulations Patient History Date of Service: 09/04/17 Reason for admission: Septic shock History of Present Illness: Patient is a 31-year-old gentleman who came into the hospital with fever and lethargy. Patient states he was having shakes and chills and he was febrile. His fever started a couple of days ago. It continued to worsen the following day and he started having some confusion. It took him a little bit of times to get his bearings, but he decided to come to the hospital for further evaluation. In the emergency room, he was found to be hypotensive along with a leukocytosis. However, the source of the infection was not identified. He appears to be in septic shock without a source being identified. Patient has had sinus infections quite frequently. He is not having any significant sinus tenderness. Patient also has a history of seizures and his last seizures he said he broke some of his teeth, and he also cracked his molars. He is having tenderness whenever he drinks something cold. There is not any significant tenderness on palpation noted. Blood cultures are pending and will also get an echocardiogram this morning. Allergies No Known Allergies Allergy (Verified 06/03/16 08:44) Home Medications: Clonazepam [Klonopin] 2 mg PO TID 05/31/16 Gabapentin [Neurontin*] 300 mg PO TID 09/04/17 Quetiapine Fumarate [Seroquel] 200 mg PO BEDTIME 09/04/17 - Past Medical/Surgical History Has patient received pneumonia vaccine in the past: No Diabetic: No -: Schizophrenia -: Sinus surgery -: Appendectomy - Family History Sister Medical History: Heart disease Mother Medical History: Stroke Father Medical History: Heart disease, Hypertension - Social History Smoking Status: Never smoker Alcohol use: No CD- Drugs: No Caffeine use: Yes Place of Residence: Home Review of Systems 10-point ROS is otherwise unremarkable Physical Examination - Vital Signs Temperature: 98.3 F Blood Pressure: 107/70 Pulse: 95 Respirations: 28 Pulse Ox (%): 95 - Physical Exam General: Alert, In no apparent distress, Oriented x3 HEENT: Atraumatic, PERRLA, Mucous membr. moist/pink, EOMI, Sclerae nonicteric Neck: Supple, 2+ carotid pulse no bruit, No LAD, Without JVD or thyroid abnormality Respiratory: Clear to auscultation bilaterally, Normal air movement Cardiovascular: Regular rate/rhythm, Normal S1 S2, No murmurs Gastrointestinal: Normal bowel sounds, Soft and benign, Non-distended, No tenderness Musculoskeletal: No clubbing, No swelling, No tenderness Integumentary: No rashes Neurological: Normal gait, Normal speech, Normal strength at 5/5 x4 extr, Normal tone, Sensation intact, Cranial nerves 3-12 intact, Normal affect Lymphatics: No axilla or inguinal lymphadenopathy - Studies Laboratory Data (last 24 hrs) 09/04/17 17:00: WBC 28.5 H*, Hgb 13.9, Hct 42.0, Plt Count 153 09/04/17 17:00: Sodium 134 L, Potassium 4.6, BUN 28 H, Creatinine 1.68 H, Glucose 112, Total Bilirubin 1.0, AST 112 H, ALT 107 H, Alkaline Phosphatase 66 , Lipase 12 L Microbiology Data (last 24 hrs): 09/04/17 17:00 Nasopharnyx Influenza Type A Antigen Screen - Final 09/04/17 17:00 Nasopharnyx Influenza Type B Antigen Screen - Final 09/04/17 17:00 Throat Group A Streptococcus Rapid Screen - Final Assessment & Plan - Problems (Diagnosis) (1) Septic shock Current Visit: Yes Status: Acute (2) History of seizures Current Visit: Yes Status: Acute (3) Chronic sinusitis Current Visit: Yes Status: Acute (4) Elevated liver enzymes Current Visit: Yes Status: Acute (5) Acute renal insufficiency Current Visit: Yes Status: Acute - Plan Plan: 1. Aggressive IV hydration 2. Vasopressor support with Levophed 3. Check thyroid and cortisol levels 4. Blood cultures pending 5. Echocardiogram 6. IV antibiotics 7. Repeat lactic acid level 8. Monitor white blood cell count 9. Monitor liver function in renal function closely 10. GI and DVT prophylaxis Discharge Plan: Home Plan to discharge in: Greater than 2 days - Advance Directives Does patient have a Living Will: No Does patient have a Durable POA for Healthcare: No - Code Status/Comfort Care Code Status Assessed: Yes Code Status: Full Code Critical Care: Yes Time Spent Managing PTS Care (In Minutes): 60
[2017-09-05 05:18] LABS: Absolute Lymphocytes (CBC) 1.3 K/uL (0.7-4.9); Absolute Monocytes 1.2 K/uL (0.1-1.3); Absolute Neutrophil 19.9 K/uL (1.8-8.0); Basophils % 0.1 % (0-1.3); Eosinophils % 0.1 % (0-4.4); Hematocrit 38.9 % (39.6-49.0); Lymphocytes % 5.9 % (15.3-44.8); MCV 85.8 fL (80-100); MPV 8.8 fL (7.6-11.3); Monocytes % 5.3 % (3.3-12.3); RBC Red Blood Cell Count 4.53 M/uL (4.33-5.43)
[2017-09-05 05:49] LABS: Magnesium 1.5 mg/dL (1.8-2.5); Phosphorus 1.3 mg/dL (2.5-4.3)
[2017-09-05 05:50] LABS: Potassium 2.8 mEq/L (3.6-5.0)
[2017-09-05] MEDS: PIPER/TAZO/NS 3.375gm 3.375 GM/100 ML BAG IVPB SCH ×4 (06:01→16:20)
[2017-09-05] MEDS: ACETAMINOPHEN 325 MG TABLET PO PRN (06:02)
[2017-09-05] MEDS ORDERED: PIPERACIL/TAZO 3.375 GM VIAL IV ONE (06:17)
[2017-09-05] MEDS ORDERED: NA CHLORIDE 0.9% 100 ML ONE (06:17)
[2017-09-05] MEDS ORDERED: ACETAMINOPHEN 500 MG TAB PO ONE (06:25)
[2017-09-05] MEDS ORDERED: Magnesium Sulfate 2gm IVPB 2 G/50 ML BAG IV ONE (06:33)
[2017-09-05] MEDS: KCL 20 MEQ/100 mL IVPB 20 MEQ/100 ML BAG IV SCH ×2 (06:39→08:13)
[2017-09-05] MEDS: PANTOPRAZOLE 40MG TABLET PO SCH (06:39)
[2017-09-05 07:15] LABS: Thyroid Stimulating Hormone 1.24 uIU/mL (0.34-5.60)
[2017-09-05] MEDS ORDERED: INFLUENZA VACCINE (for 5y+) 0.5 ML DOSE IMVAC ONE (08:00)
[2017-09-05] MEDS: ENOXAPARIN 30 MG/0.3 ML SQ SCH (08:13)
[2017-09-05] MEDS: GABAPENTIN 300 MG CAP PO SCH ×3 (08:13→20:44)
[2017-09-05] MEDS: DOCUSATE NA 100 MG CAP PO SCH ×2 (08:13→20:43)
[2017-09-05] MEDS: NA CHLORIDE 0.9% 1,000 ML IV SCH (08:15)
--- NOTE | 2017-09-05 08:15 | P.CNS ---
Date of Consult: 09/05/17 Reason for Consult: Possible sepsis Chief Complaint: Chills History of Present Illness: Patient is 31 years of age admitted with sudden onsetrigors and chills denies any cough sputum hemoptysis. Patient denies any symptoms of urinary tract infection or any abdominal complaints this happened all of a sudden chest x-ray is negative Allergies No Known Allergies Allergy (Verified 06/03/16 08:44) Home Medications: Clonazepam [Klonopin] 2 mg PO TID 05/31/16 Gabapentin [Neurontin*] 300 mg PO TID 09/04/17 Quetiapine Fumarate [Seroquel] 200 mg PO BEDTIME 09/04/17 - Past Medical/Surgical History Diabetic: No -: Schizophrenia -: Glaucoma -: Sinus surgery -: Appendectomy - Family History Sister Medical History: Heart disease Mother Medical History: Stroke Father Medical History: Heart disease, Hypertension - Social History Smoking Status: Never smoker Alcohol use: No CD- Drugs: No Caffeine use: Yes Place of Residence: Home Review of Systems 10-point ROS is otherwise unremarkable General: Weakness Physical Examination Temp Pulse Resp BP Pulse Ox 98.3 F 115 H 28 H 118/77 96 09/05/17 04:43 09/05/17 06:00 09/05/17 06:00 09/05/17 06:00 09/05/17 06:00 General: Alert, Oriented x3 HEENT: Atraumatic Neck: Supple Respiratory: Clear to auscultation bilaterally Cardiovascular: No edema, Regular rate/rhythm Gastrointestinal: Normal bowel sounds, Non-distended Laboratory Data (last 24 hrs) 09/04/17 17:00: WBC 28.5 H*, Hgb 13.9, Hct 42.0, Plt Count 153 09/04/17 17:00: Sodium 134 L, Potassium 4.6, BUN 28 H, Creatinine 1.68 H, Glucose 112, Total Bilirubin 1.0, AST 112 H, ALT 107 H, Alkaline Phosphatase 66 , Lipase 12 L - Problems (1) Sepsis Current Visit: Yes Status: Acute Plan: Patient is 31 years of age admitted with sudden onset of rigors and chills most likely he has bacteremic urinalysis is negative possible source includes lung CT of the abdomen is negative but cultures are pending labs reviewed patient has renal insufficiency white count is significantly elevated bandemia most likely source is the lungs probably pneumococcal pneumonia with bacteremia vital signs stable
--- NOTE | 2017-09-05 08:29 | P.PN ---
Subjective Date of Service: 09/05/17 Primary Care Provider: Dr. Mejia([place]); ENT-Dr. Zavala Chief Complaint: Chills Subjective: Doing well (Patient doing better. Patient without any significant cough, shortness of breath. No abdominal pain noted. Patient off Levophed.) Physical Examination - Vital Signs Temperature: 98.3 F Blood Pressure: 118/77 Pulse: 115 Respirations: 28 Pulse Ox (%): 96 - Physical Exam General: Alert, In no apparent distress, Oriented x3, Cooperative HEENT: Atraumatic, Normocephalic Neck: Supple, No Thyromegaly Respiratory: Clear to auscultation bilaterally, Normal air movement Cardiovascular: Abnormal pulses (Sinus tachycardia) Gastrointestinal: Normal bowel sounds, Soft and benign, Non-distended, No ascites, No tenderness, No masses, No rebound, No guarding Musculoskeletal: No erythema, No tenderness, No warmth Integumentary: No tenderness/swelling, No erythema, No warmth, No cyanosis Neurological: Normal speech, Normal strength at 5/5 x4 extr, Normal tone, Normal affect Lymphatics: No axilla or inguinal lymphadenopathy - Studies Laboratory Data (last 24 hrs) 09/04/17 17:00: WBC 28.5 H*, Hgb 13.9, Hct 42.0, Plt Count 153 09/04/17 17:00: Sodium 134 L, Potassium 4.6, BUN 28 H, Creatinine 1.68 H, Glucose 112, Total Bilirubin 1.0, AST 112 H, ALT 107 H, Alkaline Phosphatase 66 , Lipase 12 L Microbiology Data (last 24 hrs): 09/04/17 17:00 Nasopharnyx Influenza Type A Antigen Screen - Final 09/04/17 17:00 Nasopharnyx Influenza Type B Antigen Screen - Final 09/04/17 17:00 Throat Group A Streptococcus Rapid Screen - Final Medications List Reviewed: Yes Assessment & Plan - Problems (Diagnosis) (1) Schizophrenia Current Visit: Yes Status: Chronic Plan: Will continue with his medication. Patient appears stable at this time. Qualifiers: Schizophrenia type: unspecified Qualified Code(s): F20.9 - Schizophrenia, unspecified (2) Acute renal insufficiency Onset Date: 09/05/17 Current Visit: Yes Status: Acute Plan: This has improved with IV hydration. Will adjust IV fluids. Patient off Levophed at this time. (3) Bacteremia Current Visit: Yes Status: Suspected Plan: Suspect bacteremia. Blood cultures pending. Etiology unknown. May be from respiratory source. CT scan of the abdomen negative. Patient on Zosyn and vancomycin. (4) Chronic sinusitis Onset Date: 09/05/17 Current Visit: Yes Status: Chronic Plan: Patient with history of chronic sinusitis. Patient reports surgeries in 2004 for sinuses. The patient then saw plastic surgery in 2009 for reconstruction of sinuses. Patient reported broken nose a year ago. He has seen ENT recently. It will discuss case with ENT. Patient reports some mild headaches today. Will order CT scan of the head to further assess Qualifiers: Sinusitis location: unspecified location Qualified Code(s): J32.9 - Chronic sinusitis, unspecified (5) Dehydration Current Visit: Yes Status: Acute Plan: Continue with IV fluid hydration. IV fluids adjusted. Patient off Levophed (6) Hypotension Current Visit: Yes Status: Acute Plan: This is likely from septic shock. This has improved. Patient off vasopressor. Will continue with IV fluids and antibiotics. Blood cultures obtained. Qualifiers: Hypotension type: unspecified hypotension type Qualified Code(s): I95.9 - Hypotension, unspecified (7) Septic shock Onset Date: 09/05/17 Current Visit: Yes Status: Acute Plan: Septic shock noted. Patient off vasopressor. Will continue with aggressive IV fluids. Patient on IV antibiotic therapy. The etiology unknown. Will discuss case with pulmonology. Will recheck chest x-ray. Will order echocardiogram. Will also get CT of the head due to history of chronic sinusitis. Blood cultures obtained. Strep negative. Influenza negative. (8) Hypokalemia Current Visit: Yes Status: Acute Plan: Will continue to monitor and adjust appropriately. Replacement protocol in place. (9) Thrombocytopenia Current Visit: Yes Status: Acute Plan: This is likely from sepsis. Will monitor closely. Patient on DVT prophylaxis. (10) Elevated liver enzymes Onset Date: 09/05/17 Current Visit: Yes Status: Acute Plan: Etiology unknown. Will send for hepatitis and HIV. Will monitor levels. (11) History of seizures Current Visit: Yes Status: Chronic Plan: There is report of history of seizures. Will Re discuss with patient. Will restart his home medication. Discharge Plan: Home Plan to discharge in: Greater than 2 days Time Spent Managing Pts Care (In Minutes): 55
[2017-09-05] MEDS ORDERED: clonazePAM 1 MG TAB PO PRN (08:32)
[2017-09-05] MEDS ORDERED: clonazePAM 1 MG TAB PO SCH (09:00)
[2017-09-05 09:12] LABS: A1c Component 0.43 mg/dL; Hemoglobin A1c 5.2 % (4-6.0)
[2017-09-05] MEDS: NACHLORIDE 0.45% 1,000 ML IV SCH ×3 (09:28→22:28)
[2017-09-05] MEDS: VANCOMYCIN 1.5 GM in NA CHLORIDE 0.9% 500 ML IVPB SCH ×2 (09:28→21:02)
--- NOTE | 2017-09-05 09:39 | RAD REPORT ---
EXAM DESCRIPTION: RAD - Chest Single View - 09/05/2017 9:06 am CLINICAL HISTORY: Chest pain, sepsis. COMPARISON: 09/04/2017. FINDINGS: Portable technique limits examination quality. The lungs are grossly clear. The heart is normal in size. No displaced fractures. IMPRESSION: No acute intrathoracic process suspected.
--- NOTE | 2017-09-05 10:09 | RAD REPORT ---
EXAM DESCRIPTION: CT - Head Brain Wo Cont - 09/05/2017 10:02 am CLINICAL HISTORY: Headache, sinus pain and pressure COMPARISON: None. TECHNIQUE: Axial 5 mm thick images of the head were obtained without IV contrast. All CT scans are performed using dose optimization technique as appropriate and may include automated exposure control or mA/KV adjustment according to patient size. FINDINGS: No intracranial hemorrhage, mass, edema or shift of mid-line structures. No acute infarcti on changes seen. No abnormal extra-axial fluid collections. Ventricles are normal. No atrophy or stencil cutter machine jamie ischemic change. No developmental abnormality seen. No abnormal calcifications seen. Mastoid air cells are clear. Antral window surgical changes are noted for each maxillary sinus. There is mild mucosal thickening in each maxillary sinus. Remaining paranasal sinuses are clear. No air-fl uid level. No sclerotic or expansile bony change seen. No acute bony findings. IMPRESSION: No intracranial abnormality seen. Minimal mucosal thickening in each maxillary sinus. No acute sinusitis findings.
[2017-09-05] MEDS ORDERED: POTASSIUM PHOS IN 0.9 % NACL 15 MMOL/250 ML BAG IV ONE (11:00)
--- NOTE | 2017-09-05 12:45 | ECHO ---
HEIGHT: 5 ft 8 in WEIGHT: 208 lb 0 oz DATE OF STUDY: 09/05/[address]: Elvin Cuevas DO 2-DIMENSIONAL: YES M.MODE: YES DOPPLER: YES COLOR FLOW: YES TDS: NO PORTABLE: YES DEFINITY: NO BUBBLE STUDY: NO DIAGNOSIS: SEPSIS CARDIAC HISTORY: CATHERIZATION: NO SURGERY: NO PROSTHETIC VALVE: NO PACEMAKER: NO MEASUREMENTS (cm) DIASTOLIC (NORMALS) SYSTOLIC (NORMALS) IVSd 1.2 (0.6-1.2) LA Diam 3.9 (1.9-4.0) LVEF 74% LVIDd 4.8 (3.5-5.7) LVIDs 2.7 (2.0-3.5) %FS 43% LVPWd 1.1 (0.6-1.2) Ao Diam 2.8 (2.0-3.7) 2 DIMENSIONAL ASSESSMENT: RIGHT ATRIUM: NORMAL LEFT ATRIUM: NORMAL RIGHT VENTRICLE: NORMAL LEFT VENTRICLE: NORMAL TRICUSPID VALVE: NORMAL MITRAL VALVE: NORMAL PULMONIC VALVE: NORMAL AORTIC VALVE: NORMAL PERICARDIAL EFFUSION: NONE AORTIC ROOT: NORMAL LEFT VENTRICULAR WALL MOTION: NORMAL DOPPLER/COLOR FLOW: MILD TRICUSPID REGURGITATION. COMMENTS: MILD TRICUSPID REGURGITATION. NORMAL VARIANT. NORMAL LEFT VENTRICULAR SIZE AND FUNCTION. NO EFFUSION. NO VEGETATION. TECHNOLOGIST: Yenifer SCHAFER
[2017-09-05] MEDS: clonazePAM 1 MG TAB PO SCH (20:43)
[2017-09-05] MEDS: QUETIAPINE 100MG TAB PO SCH (20:44)
[2017-09-06] MEDS: ACETAMINOPHEN 325 MG TABLET PO PRN ×2 (00:04→05:12)
[2017-09-06] MEDS: PIPER/TAZO/NS 3.375gm 3.375 GM/100 ML BAG IVPB SCH ×2 (00:04→08:32)
[2017-09-06] MEDS: FENTANYL CITR 100 MCG/2 ML IV PRN (02:40)
[2017-09-06 04:20] VITALS: O2SAT 95
[2017-09-06 05:17] VITALS: BMI 31.8
[2017-09-06 05:36] LABS: Absolute Lymphocytes (CBC) 1.3 K/uL (0.7-4.9); Absolute Monocytes 1.4 K/uL (0.1-1.3); Absolute Neutrophil 15.9 K/uL (1.8-8.0); Basophils % 0.2 % (0-1.3); Eosinophils % 0.5 % (0-4.4); Hematocrit 36.9 % (39.6-49.0); Lymphocytes % 7.2 % (15.3-44.8); MCH 28.3 pg (27.0-35.0); MCV 85.5 fL (80-100); MPV 9.1 fL (7.6-11.3); Monocytes % 7.2 % (3.3-12.3); RBC Red Blood Cell Count 4.31 M/uL (4.33-5.43)
[2017-09-06] MEDS: PANTOPRAZOLE 40MG TABLET PO SCH (06:03)
[2017-09-06] MEDS: NACHLORIDE 0.45% 1,000 ML IV SCH ×3 (06:03→18:33)
[2017-09-06 06:05] LABS: Bilirubin Direct 0.4 mg/dL (0-0.2); Magnesium 1.7 mg/dL (1.8-2.5); Phosphorus 2.5 mg/dL (2.5-4.3); Potassium 4.2 mEq/L (3.6-5.0); Protein, Total 5.8 g/dL (6.0-8.3)
[2017-09-06] MEDS ORDERED: MAGNESIUM SULFATE 1 gm IVPB 1 GM/100 ML BAG IV ONE (06:31)
[2017-09-06] MEDS ORDERED: TRAMADOL HCL 50 MG TAB PO PRN (07:36)
[2017-09-06] MEDS: DOCUSATE NA 100 MG CAP PO SCH ×2 (08:32→21:00)
[2017-09-06] MEDS: clonazePAM 1 MG TAB PO SCH ×3 (08:32→21:00)
[2017-09-06] MEDS: GABAPENTIN 300 MG CAP PO SCH ×3 (08:32→21:00)
[2017-09-06] MEDS: ENOXAPARIN 30 MG/0.3 ML SQ SCH (08:33)
--- NOTE | 2017-09-06 08:54 | P.PN ---
Subjective Date of Service: 09/06/17 Primary Care Provider: Dr. Mejia([place]); ENT-Dr. Zavala Chief Complaint: Chills Subjective: Improving (Patient improving. Patient still has mild headache. Good urine output noted. Blood pressure improved. Heart rate still slightly tachycardic) Physical Examination - Vital Signs Temperature: 99.9 F Blood Pressure: 111/68 Pulse: 105 Respirations: 24 Pulse Ox (%): 94 - Physical Exam General: Alert, In no apparent distress, Oriented x3, Cooperative HEENT: Atraumatic, Normocephalic, Mucous membr. moist/pink Neck: Supple, No Thyromegaly Respiratory: Clear to auscultation bilaterally, Normal air movement Cardiovascular: Abnormal pulses (Sinus tachycardia ) Gastrointestinal: Normal bowel sounds, Soft and benign, Non-distended, No tenderness, No masses, No rebound, No guarding Musculoskeletal: No erythema, No tenderness, No warmth Integumentary: No tenderness/swelling, No erythema, No warmth, No cyanosis Neurological: Normal speech, Normal strength at 5/5 x4 extr, Normal tone, Normal affect Lymphatics: No axilla or inguinal lymphadenopathy - Studies Microbiology Data (last 24 hrs): 09/04/17 17:00 Throat Culture & Sensitivity - Final Medications List Reviewed: Yes Assessment & Plan - Problems (Diagnosis) (1) Schizophrenia Current Visit: Yes Status: Chronic Plan: No changes noted. Patient seems to be appropriate. Will continue with his medication Qualifiers: Schizophrenia type: unspecified Qualified Code(s): F20.9 - Schizophrenia, unspecified (2) Acute renal insufficiency Onset Date: 09/05/17 Current Visit: Yes Status: Acute Plan: This has improved overall. Will decrease IV fluids. Patient off vasopressor. Transition to medical floor. Will have physical therapy ambulate patient (3) Bacteremia Current Visit: Yes Status: Suspected Plan: Still suspect bacteremia. Pro calcitonin was elevated. Will need to follow pro calcitonin. Blood cultures pending. Will continue with IV antibiotic therapy. CT of the abdomen unremarkable. Chest x-ray unremarkable. Will discuss with pulmonology. (4) Chronic sinusitis Onset Date: 09/05/17 Current Visit: Yes Status: Chronic Plan: Patient with history of chronic sinusitis. Patient reports surgeries in 2004 for sinuses. The patient then saw plastic surgery in 2009 for reconstruction of sinuses. Patient reported broken nose a year ago. He has seen ENT recently. CT head unremarkable. Will provide nasal spray. Qualifiers: Sinusitis location: unspecified location Qualified Code(s): J32.9 - Chronic sinusitis, unspecified (5) Dehydration Current Visit: Yes Status: Acute Plan: IV fluids adjusted. Will transition to medical floor. (6) Hypotension Current Visit: Yes Status: Acute Plan: This has resolved. Patient is not required vasopressor. Will adjust IV medication and fluids. Qualifiers: Hypotension type: unspecified hypotension type Qualified Code(s): I95.9 - Hypotension, unspecified (7) Septic shock Onset Date: 09/05/17 Current Visit: Yes Status: Acute Plan: This appears improved. Blood cultures pending. Echocardiogram unremarkable. Will continue with IV antibiotic therapy. Pro calcitonin elevated. Will need to follow pro calcitonin. Will discuss with pulmonology. (8) Hypokalemia Current Visit: Yes Status: Acute Plan: Will continue to monitor and adjust appropriately. Replacement protocol in place. (9) Thrombocytopenia Current Visit: Yes Status: Acute Plan: This is likely from sepsis. Will monitor closely. Patient on DVT prophylaxis. (10) Elevated liver enzymes Onset Date: 09/05/17 Current Visit: Yes Status: Acute Plan: Etiology unknown. Hepatitis panel and HIV panel pending. Overall this has improved. This is likely from septic shock. (11) History of seizures Current Visit: Yes Status: Chronic Plan: There is report of history of seizures. Will continue with his medication (12) Chronic pain Current Visit: Yes Status: Chronic Plan: Patient reports chronic pain. He is taking medication. Will continue with Neurontin. Will transition to oral medication as needed. Qualifiers: Chronic pain type: other chronic pain Qualified Code(s): G89.29 - Other chronic pain Discharge Plan: Home Plan to discharge in: 72 Hours Time Spent Managing Pts Care (In Minutes): 55
[2017-09-06] MEDS ORDERED: VANCOMYCIN 1.75 GM in NA CHLORIDE 0.9% 500 ML IVPB SCH (10:00)
--- NOTE | 2017-09-06 10:18 | RAD REPORT ---
EXAM DESCRIPTION: CT - Thorax Wo Con CLINICAL HISTORY: Chest pain COMPARISON: None FINDINGS: 8 x 5 mm noncalcified nodule is seen in the right middle lobe laterally (image 24/50). Coni ear atelectasis is present in both posterior lung bases. Trace bilateral pleural fluid. No pneumothor ax. No pathologically enlarged lymphadenopathy in the chest. No concerning bony finding. No gross upper abdominal finding. All CT scans are performed using dose optimization technique as appropriate and may include automated exposure control or mA/KV adjustment according to patient size. IMPRESSION: No acute infiltrate or other acute intrathoracic process seen. 8 x 5 mm noncalcified nodule in the right middle lobe laterally. Consider follow-up chest CT in 6-12 months.
[2017-09-06] MEDS: HYDROCODONE/APAP 7.5/325 MG TAB PO PRN (11:32)
--- NOTE | 2017-09-06 12:52 | P.PN ---
Subjective Date of Service: 09/06/17 Primary Care Provider: Dr. Mejia([place]); ENT-Dr. Zavala Chief Complaint: Chills Subjective: Improving (Patient is feeling better still has some chills headaches denies any neck stiffness) Review of Systems General: Weakness, Other (Still complaining of chills and headaches) Physical Examination - Vital Signs Temperature: 98.4 F Blood Pressure: 92/48 Pulse: 112 Respirations: 16 Pulse Ox (%): 94 - Physical Exam General: Alert, Oriented x3 Respiratory: Clear to auscultation bilaterally Cardiovascular: No edema, Regular rate/rhythm Neurological: Other (There is no neck stiffness or any neurological abnormalities) - Studies Microbiology Data (last 24 hrs): 09/04/17 17:00 Throat Culture & Sensitivity - Final Medications List Reviewed: Yes Assessment & Plan - Problems (Diagnosis) (1) Sepsis Current Visit: Yes Status: Acute Plan: Patient admitted with rigors and chills in addition to fever white count is declining cultures are all negative CT scan of the chest and abdomen negative no evidence of urinary tract infection has a borderline temp stop vancomycin Zosyn jacket changer to Rocephin and Zithromax probably has an atypical infection most likely viral possible discharge tomorrow ambulate
[2017-09-06] MEDS ORDERED: POTASSIUM PHOS IN 0.9 % NACL 15 MMOL/250 ML BAG IV ONE (15:15)
[2017-09-06] MEDS: AZITHROMYCIN 250 MG TAB PO SCH (15:32)
[2017-09-06] MEDS: CEFTRIAXONE/SWI 1gm 1 GM/10 ML SYR IV SCH (15:33)
[2017-09-06] MEDS: QUETIAPINE 100MG TAB PO SCH (21:00)
[2017-09-07] MEDS: HYDROCODONE/APAP 7.5/325 MG TAB PO PRN ×2 (01:11→07:31)
[2017-09-07] MEDS: NACHLORIDE 0.45% 1,000 ML IV SCH ×2 (01:16→03:38)
[2017-09-07 03:18] LABS: HBsAG Nonreactive (Nonreactive); Hepatitis A IgM Antibody Nonreactive
[2017-09-07 06:12] LABS: Absolute Lymphocytes (CBC) 2.2 K/uL (0.7-4.9); Absolute Monocytes 0.9 K/uL (0.1-1.3); Absolute Neutrophil 7.7 K/uL (1.8-8.0); Basophils % 0.5 % (0-1.3); Eosinophils % 4.2 % (0-4.4); Hematocrit 38.3 % (39.6-49.0); Lymphocytes % 19.6 % (15.3-44.8); MCH 28.1 pg (27.0-35.0); MCV 85.3 fL (80-100); MPV 9.2 fL (7.6-11.3); Monocytes % 7.5 % (3.3-12.3)
[2017-09-07 06:27] LABS: ALT/SGPT 45 IU/L (10-60); AST/SGOT 22 IU/L (10-42); Bicarbonate 24 mEq/L (21-31); Bilirubin Direct 0.3 mg/dL (0-0.2); Bilirubin Total 0.7 mg/dL (0.3-1.2); Potassium 3.8 mEq/L (3.6-5.0); Protein, Total 6.2 g/dL (6.0-8.3); Sodium Level 142 mEq/L (135-145)
[2017-09-07 06:28] LABS: Alkaline Phosphatase 116 IU/L (42-121); BUN Blood Urea Nitrogen 5 mg/dL (6-20); Glomerular Filtration Rate > 90 mL/min (=/>90); Glucose Level 95 mg/dL (65-120); Magnesium 1.7 mg/dL (1.8-2.5); Phosphorus 3.1 mg/dL (2.5-4.3)
[2017-09-07] MEDS: PANTOPRAZOLE 40MG TABLET PO SCH (07:30)
[2017-09-07] MEDS ORDERED: MAGNESIUM SULFATE 1 gm IVPB 1 GM/100 ML BAG IV ONE (08:00)
[2017-09-07] MEDS ORDERED: POTASSIUM 25 MEQ EFFERV TAB PO ONE (08:00)
[2017-09-07] MEDS: CEFTRIAXONE/SWI 1gm 1 GM/10 ML SYR IV SCH (09:29)
[2017-09-07] MEDS: clonazePAM 1 MG TAB PO SCH (09:29)
[2017-09-07] MEDS: DOCUSATE NA 100 MG CAP PO SCH (09:29)
[2017-09-07] MEDS: AZITHROMYCIN 250 MG TAB PO SCH (09:29)
[2017-09-07] MEDS: GABAPENTIN 300 MG CAP PO SCH (09:29)
[2017-09-07] MEDS: ENOXAPARIN 30 MG/0.3 ML SQ SCH (09:29)
--- NOTE | 2017-09-07 12:00 | P.DS ---
Admission Date: 09/04/17 Discharge Date: 09/07/17 Primary Care Provider: Dr. Mejia([place]); ENT-Dr. Zavala Disposition: ROUTINE DISCHARGE Discharge Condition: GOOD Reason for Admission: Chills Consultations: Pulmonary-Dr. Mayen Procedures: CT head: No acute abnormality noted CT chest: FINDINGS: 8 x 5 mm noncalcified nodule is seen in the right middle lobe laterally (image 24/50). Linear atelectasis is present in both posterior lung bases. Trace bilateral pleural fluid. No pneumothorax. No pathologically enlarged lymphadenopathy in the chest. No concerning bony finding. No gross upper abdominal finding. All CT scans are performed using dose optimization technique as appropriate and may include automated exposure control or mA/KV adjustment according to patient size. IMPRESSION: No acute infiltrate or other acute intrathoracic process seen. 8 x 5 mm noncalcified nodule in the right middle lobe laterally. Consider follow -up chest CT in 6-12 months. Echocardiogram: Normal ejection fraction CT abdomen pelvis: Unremarkable. No acute abnormality noted - Problems (1) Schizophrenia Current Visit: Yes Status: Chronic Qualifiers: Schizophrenia type: unspecified Qualified Code(s): F20.9 - Schizophrenia, unspecified (2) Acute renal insufficiency Onset Date: 09/05/17 Current Visit: Yes Status: Resolved (3) Chronic sinusitis Onset Date: 09/05/17 Current Visit: Yes Status: Chronic Qualifiers: Sinusitis location: unspecified location Qualified Code(s): J32.9 - Chronic sinusitis, unspecified (4) Dehydration Current Visit: Yes Status: Resolved (5) Hypotension Current Visit: Yes Status: Resolved Qualifiers: Hypotension type: unspecified hypotension type Qualified Code(s): I95.9 - Hypotension, unspecified (6) Septic shock Onset Date: 09/05/17 Current Visit: Yes Status: Resolved (7) Hypokalemia Current Visit: Yes Status: Resolved (8) Thrombocytopenia Current Visit: Yes Status: Acute (9) Elevated liver enzymes Onset Date: 09/05/17 Current Visit: Yes Status: Acute (10) Chronic pain Current Visit: Yes Status: Chronic Qualifiers: Chronic pain type: other chronic pain Qualified Code(s): G89.29 - Other chronic pain (11) Viral illness Current Visit: Yes Status: Suspected (12) Obesity Current Visit: Yes Status: Chronic Qualifiers: Obesity type: due to excess calories Obesity classification: adult class 1 (BMI 30 - 34.9) Serious obesity comorbidity presence: without serious comorbidity Body mass index: BMI 31.0-31.9 Qualified Code(s): E66.09 - Other obesity due to excess calories; Z68.31 - Body mass index (BMI) 31.0-31.9, adult; Z68.31 - Body mass index (BMI) 31.0-31.9, adult (13) Pulmonary nodule Current Visit: Yes Status: Acute (14) Obstructive sleep apnea Current Visit: Yes Status: Suspected Brief History of Present Illness: 31-year-old male presented to emergency room with increasing chills and rigors. The patient also reported fever and fatigue. The patient was evaluated emergency room found to have elevated white count. The patient also had hypotension. Patient denied any significant cough, congestion or shortness of breath. The patient was in septic shock requiring vasopressor. The patient was admitted for further evaluation and treatment. Patient sent to ICU. Hospital Course: During this course of his stay the patient was evaluated by pulmonology. His condition improved. He was taken off vasopressors. Patient did well with fluid hydration. The patient did appear dehydrated. Patient had some electrolyte abnormalities which improved. Overall therapy to be no source of infection. Blood cultures x2 were negative. Patient was negative for influenza and strep. Tensas test was negative. Hepatitis panel was negative. HIV panel pending at discharge. A CT of the brain was unremarkable. There was no indication of any acute sinusitis as the patient has a history of chronic sinusitis with previous surgery. CT of the abdomen and pelvis was unremarkable. CT scan of the chest did show a right middle lobe nodule. No pneumonia was noted. Echocardiogram was also unremarkable without any vegetation. Patient had normal ejection fraction. Pulmonology believes that the patient likely had a viral illness that led to his condition. Atypical bacteria also was possible. At discharge patient will continue with Zithromax 250 mg 1 pill daily for the next 5 days. Patient to increase his volume intake. Recommendations for the patient to follow up with his PCP to further monitor. Recommendation to recheck CBC and BMP in 1-2 weeks to monitor his progress. Patient will need a follow up with pulmonology to follow up on the pulmonary nodule. Patient will likely need repeat CT scan of the chest in 3-6 months. Patient has a history of schizophrenia. Patient will continue with his medication-Seroquel and Klonopin. Patient takes large doses of benzodiazepine. Hopefully this can be weaned off over time. Patient may continue with his medications and follow up with his psychiatrist. Patient also has underlying chronic pain. Patient will continue with Neurontin. Patient likely has underlying obstructive sleep apnea. This can be further evaluated by pulmonology. Vital Signs/Physical Exam: Temp Pulse Resp BP Pulse Ox 98.5 F 86 24 H 114/61 96 09/07/17 07:49 09/07/17 07:49 09/07/17 07:49 09/07/17 07:49 09/07/17 07:49 General: Alert, In no apparent distress, Oriented x3, Cooperative HEENT: Atraumatic, Mucous membr. moist/pink Neck: Supple, No Thyromegaly Respiratory: Clear to auscultation bilaterally, Normal air movement Cardiovascular: Normal pulses, Regular rate/rhythm Gastrointestinal: Normal bowel sounds, Soft and benign, Non-distended, No ascites, No tenderness, No masses, No rebound, No guarding Musculoskeletal: No erythema, No tenderness, No warmth Integumentary: No tenderness/swelling, No erythema, No warmth, No cyanosis Neurological: Normal speech, Normal strength at 5/5 x4 extr, Normal tone, Normal affect Laboratory Data at Discharge: WBC 11.3 K/uL (4.3-10.9) H D 09/07/17 05:30 Hgb 12.6 g/dL (13.6-17.9) L 09/07/17 05:30 Hct 38.3 % (39.6-49.0) L 09/07/17 05:30 Plt Count 116 K/uL (152-406) L D 09/07/17 05:30 Sodium 142 mEq/L (135-145) 09/07/17 05:30 Potassium 3.8 mEq/L (3.6-5.0) 09/07/17 05:30 BUN 5 mg/dL (6-20) L 09/07/17 05:30 Creatinine 0.87 mg/dL (0.61-1.24) 09/07/17 05:30 Glucose 95 mg/dL (65-120) 09/07/17 05:30 Phosphorus 3.1 mg/dL (2.5-4.3) 09/07/17 05:30 Magnesium 1.7 mg/dL (1.8-2.5) L 09/07/17 05:30 Total Bilirubin 0.7 mg/dL (0.3-1.2) 09/07/17 05:30 AST 22 IU/L (10-42) 09/07/17 05:30 ALT 45 IU/L (10-60) 09/07/17 05:30 Alkaline Phosphatase 116 IU/L (42-121) 09/07/17 05:30 Lipase 12 U/L (22-51) L 09/04/17 17:00 Home Medications: Clonazepam [Klonopin*] 2 mg PO TID 05/31/16 Gabapentin [Neurontin*] 300 mg PO TID 09/04/17 Quetiapine Fumarate [Seroquel] 200 mg PO BEDTIME 09/04/17 Azithromycin Tab [Zithromax*] 250 mg PO DAILY #5 tab 09/07/17 New Medications: Azithromycin Tab [Zithromax*] 250 mg PO DAILY #5 tab Patient Discharge Instructions: 1. Patient will need a follow up with his PCP in 1 week to follow up this hospitalization. 2. Patient found to have septic shock like viral related or atypical bacteria. Blood cultures negative. CT head/chest/abdomen/pelvis unremarkable. Patient back to baseline. Patient will continue with Zithromax 250 mg 1 pill p.o. daily for 5 days. Recommendation is for the patient follow up with pulmonology in 1 week to follow up this hospitalization. 3. Patient was found to have the right middle lobe nodule. Patient will follow up with pulmonology in 1 week to follow up this hospitalization. Patient will require repeat CT scan in the future. 4. Patient has a history of schizophrenia. Patient will continue with his medication. Patient will need a follow up with psychiatry. 5. Patient with history of chronic pain. Patient will continue with his medication. 6. Patient likely has obstructive sleep apnea. Recommendation is for the patient to have a sleep study done as an outpatient. Patient may follow up with pulmonology to further address. 7. Patient with history of chronic sinusitis. Patient will need to follow up with his ear nose throat specialist. Diet: AHA Activity: Fall precautions Time spent managing pt's care (in minutes): 55
[2017-09-07 12:12] VITALS: BP 108/61; TEMP 98.1
[2017-09-07 17:54] LABS: HIV 1/2 Antibody Diff Not indicated.; HIV AG/AB 4TH GEN Non-reactive (Non-reactive)
== END 2017-09-07 16:11 | disposition home or self-care (01) | DRG 871 ==
LOC: ER 15:48 → ERHOLD 21:55 → 4TH 22:26 → 3RD-ICU 22:37 → 4TH 09-06 11:40
PROVIDERS: ADMIT Hospitalist; ATTEND Hospitalist
PROC: 06HM33Z Insertion of Infusion Device into Right Femoral Vein, Percutaneous Approach (ICD-10-PCS; principal; 2017-09-04)
DX: A41.9 Sepsis, unspecified organism (principal); R65.21 Severe sepsis with septic shock; F20.9 Schizophrenia, unspecified; J32.9 Chronic sinusitis, unspecified; E86.0 Dehydration; E87.6 Hypokalemia; D69.6 Thrombocytopenia, unspecified; G89.29 Other chronic pain; G47.33 Obstructive sleep apnea (adult) (pediatric); E66.9 Obesity, unspecified; Z68.31 Body mass index [BMI] 31.0-31.9, adult
CPT/HCPCS: 36415; 70450; 71045; 71250; 74176; 80048; 80074; 80076; 80202; 80307; 81003; 82533; 82550; 82805; 83036; 83605; 83690; 83735; 84100; 84132; 84145; 84443; 85025; 86308; 87040; 87070; 87081; 87389; 87804; 93005; 93306; 97163; 99285; J0696; J1650; J2543; J2550; J3010; J3370; J3475; J7030

== ENCOUNTER 2018-07-26 11:48 | Emergency (ER) | payer BC ==
--- OUTSIDE RECORDS SUMMARY | 2018-07-26 11:50 | XMS REPORT ---
:1985 [facility] [address] [place] [address] Care Team Providers Name Role Phone UNKNOWN, [...] Facility Department ID 2017-05-22 2017-06-01 Inpatient E [facility] [id number] 03:01:00 13:18:00 NAMAN Craven M.D. Results Test Description Test Time Test Comments Text Results Atomic Results Result Comments POC Glucose, Blood 2017-10-07 20:32:00 Test Item Value Reference Range Comments POC Glucose (test code=POCGLUC) 101 mg/dL 70-115 If you consider your patient critically ill, the Hua Accu-Chek InformII metershould not be used for Glucose determinations.Draw a venous Glucose and send to the Main Lab for Analysis. RPR, [id number] 14:24:00 Test Item Value Reference Range Comments RPR (test code=RPR) Non-Reactive Non-Reactive Thyroid Stimulating Hormone (TSH)2017-09-26 09:39:00 Test Item Value Reference Range Comments TSH (test code=TSH) 0.54 mIU/mL 0.270-4.200 Lipid [id number] 09:31:00 Test Item Value Reference Range Comments Cholesterol (test 212 mg/dL 0-200 code=CHOL) Triglycerides (test 113 mg/dL 9-200 code=TRIG) HDL (test code=HDL) 41 mg/dL 40-60 Chol/HDL (test 5.2 Ratio 0.0-5.0 code=CHOLPHDL) LDL, Calculated (test 148 0-130 (NOTE)RISK OF HEART code=LDLC) DISEASEPublished by French Heart AssociationAnalyte Optimal Boderline Increased RiskCHOL <200 200-239 >240TRIG <150 150-199 >200HDL Male: >60 <40HDL Female: >60 <50LDL <100 130-159 >160LDL NEAR OPTIMAL IS 100-129 VLDL (test code=VLDL) 23 mg/dL 5-40 LDL/HDL (test code=LDLPHDL) 4 [id number] 15:13:00 Test Item Value Reference Range Comments Amphetamine (test code=AMPH) Negative Negative For diagnostic purposes only, positive results should always be assessedin conjunctionwith the patient's medical history,clinical examination and otherfindings.To fulfill legal requirements, a more specific alternate chemical methodmust be used inorder to obtain a Confirmed analytical result. GC/MS is the preferred confirmatory method. Barbiturates (test code=MUSTAPHA) Negative Negative Benzodiazepine (test POSITIVE Negative code=JUVENTINO) Cocaine (test code=COCA) Negative Negative Methadone (test code=MTHD) Negative Negative Opiates (test code=OPIA) Negative Negative PCP (test code=PCP) Negative Negative Propoxyphene (test Negative Negative code=PROPOX) THC (test code=THC) Negative Negative Comprehensive Metabolic [id number] 14:37:00 Test Item Value Reference Range Comments Sodium (test code=NA) 144 mmol/L 135-145 Potassium (test code=K) 4.3 mmol/L 3.5-5.1 Chloride (test code=CL) 107 mmol/L 98-105 Carbon Dioxide (test 24 mmol/L 22-29 code=CO2) Glucose (test code=GLU) 104 mg/dL 70-115 Blood Urea Nitrogen 8 mg/dL 6-20 (test code=BUN) Creatinine (test 0.9 mg/dL 0.7-1.2 code=CREAT) Calcium (test code=CA) 9.4 mg/dL 8.3-10.5 Prot Total (test 6.6 g/dL 6.4-8.3 code=TP) Albumin (test code=ALB) 4.2 g/dL 3.5-5.2 A/G Ratio (test 1.8 Ratio code=AGRATIO) Globulin (test 2.4 2.9-3.1 code=GLOB) Bili Total (test 0.2 mg/dL 0.1-0.9 code=TBIL) Alk Phos (test 74 U/L 40-129 code=APHOS) AST (test code=AST) 20 U/L 1-40 ALT (test code=ALT) 24 U/L 1-41 BUN/Creatinine Ratio 8.9 (test code=BCRATIO) Anion Gap (test 13 mmol/L 7-16 code=AGAP) Estimated GFR (test >60 mL/min/1.73m2 eGFR (estimated Glomerular code=GFR) Filtration Rate) is an estimated value,calculated from the patient's serum creatinine using the MDRD equation.It is NOT the patient's actual GFR. The eGFR provides a more clinicallyuseful measure of kidney disease than serum creatinine alone.This calculation takes sex and race into account, if the informationis provided. If the race is not provided, and the patient isAfrican-French, multiply by 1.212. If sex is not provided, and thepatient is female, multiply by 0.742. Results for patients <18 years ofage have not been validated by the MDRD study and should be interpretedwith caution.eGFR Result Interpretation:eGFR > or=60 is in the Normal RangeeGFR < 60 may mean kidney diseaseeGFR < 15 may mean kidney failureRanges recommended by the National Kidney Foundation,http://nkdep.nih .gov Urinalysis [id number] 14:25:00 Test Item Value Reference Range Comments Color (test code=COLOR) Yellow Yellow,Straw,Pl yellow Clarity (test code=CLAR) Clear Clear Specific [place] (test code=SPGR) 1.017 1.001-1.035 pH (test code=PH) 7.0 5.0-9.0 Ketone (test code=KET) Negative mg/dL Negative Glucose (test code=GLUCUR) Negative mg/dL Negative Protein (test code=PROT) Negative mg/dL Negative Bilirubin (test code=BILI) Negative mg/dL Negative Occult Blood (test code=UDOB) Negative Negative Urobilinogen (test code=UROB) 0.2 mg/dL 0.2-1.0 Nitrite (test code=NIT) Negative Negative Leuk Esterase (test code=LEUK) Negative Negative Micros Exam (test code=MEXAM) Not indicated CBC with [id number] 14:20:00 Test Item Value Reference Range Comments WBC (test code=WBC) 6.5 K/cumm 4.4-10.5 RBC (test code=RBC) 4.68 M/cumm 4.10-5.70 Hemoglobin (test code=HGB) 13.5 gm/dL 13.4-17.4 Hematocrit (test code=HCT) 40.8 % 38.7-52.0 MCV (test code=MCV) 87.1 fL 80-100 MCH (test code=MCH) 28.8 pg 27.0-32.5 MCHC (test code=MCHC) 33.0 g/dL 32.0-37.5 RDW (test code=RDW) 13.9 % 11.5-14.5 Platelet Count (test code=PLTCT) 319 K/cumm 140-440 MPV (test code=MPV) 6.8 fL Diff Method (test code=DIFFM) Auto Neutrophil (test code=NEUT) 67.4 % 36-70 Lymphocyte (test code=LYMPH) 26.5 % 12-44 Monocyte (test code=MONO) 4.4 % 0-11 Eosinophil (test code=EOS) 1.0 % 0-7 Basophil (test code=BASO) 0.6 % 0-2 Neutro Abs (test code=ANEUT) 4.4 K/cumm 1.6-7.4 Lymph Abs (test code=ALYMPH) 1.7 K/cumm 0.5-4.6 Tift Abs (test code=AMONO) 0.3 K/cumm 0.0-1.2 Eos Abs (test code=AEOS) 0.07 K/cumm 0.00-0.74 Baso Abs (test code=ABASO) 0.0 K/cumm 0.00-0.21 RPR, [id number] 14:15:00 Test Item Value Reference Range Comments RPR (test code=RPR) Non-Reactive Non-Reactive Thyroid Stimulating Hormone (TSH)2017-05-22 13:03:00 Test Item Value Reference Range Comments TSH (test code=TSH) 1.67 mIU/mL 0.270-4.200 Lipid [id number] 12:55:00 Test Item Value Reference Range Comments Cholesterol (test 234 mg/dL 0-200 code=CHOL) Triglycerides (test 185 mg/dL 9-200 code=TRIG) HDL (test code=HDL) 51 mg/dL 40-60 Chol/HDL (test 4.6 Ratio 0.0-5.0 code=CHOLPHDL) LDL, Calculated (test 146 0-130 (NOTE)RISK OF HEART code=LDLC) DISEASEPublished by French Heart AssociationAnalyte Optimal Boderline Increased RiskCHOL <200 200-239 >240TRIG <150 150-199 >200HDL Male: >60 <40HDL Female: >60 <50LDL <100 130-159 >160LDL NEAR OPTIMAL IS 100-129 VLDL (test code=VLDL) 37 mg/dL 5-40 LDL/HDL (test code=LDLPHDL) 3 [id number] 01:55:00 Test Item Value Reference Range Comments Amphetamine (test code=AMPH) Negative Negative For diagnostic purposes only, positive results should always be assessedin conjunctionwith the patient's medical history,clinical examination and otherfindings.To fulfill legal requirements, a more specific alternate chemical methodmust be used inorder to obtain a Confirmed analytical result. GC/MS is the preferred confirmatory method. Barbiturates (test code=MUSTAPHA) Negative Negative Benzodiazepine (test POSITIVE Negative code=JUVENTINO) Cocaine (test code=COCA) Negative Negative Methadone (test code=MTHD) Negative Negative Opiates (test code=OPIA) Negative Negative PCP (test code=PCP) Negative Negative Propoxyphene (test Negative Negative code=PROPOX) THC (test code=THC) Negative Negative Alcohol, Urine (test <0.01 g/dL 0.00-0.01 code=ETOHU) Comprehensive Metabolic [id number] 01:30:00 Test Item Value Reference Range Comments [...] mmol/L 7-16 code=AGAP) Estimated GFR (test >60 mL/min/1.73m2 eGFR (estimated Glomerular code=GFR) Filtration Rate) is an estimated value,calculated from the patient's serum creatinine using the MDRD equation.It is NOT the patient's actual GFR. The eGFR provides a more clinicallyuseful measure of kidney disease than serum creatinine alone.This calculation takes sex and race into account, if the informationis provided. If the race is not provided, and the patient isAfrican-French, multiply by 1.212. If sex is not provided, and thepatient is female, multiply by 0.742. Results for patients <18 years ofage have not been validated by the MDRD study and should be interpretedwith caution.eGFR Result Interpretation:eGFR > or=60 is in the Normal RangeeGFR < 60 may mean kidney diseaseeGFR < 15 may mean kidney failureRanges recommended by the National Kidney Foundation,http://nkdep.nih .gov Alcohol/Ethanol, [id number] 01:21:00 Test Item Value Reference Range Comments Alcohol, Ethyl (test <0.01 g/dL 0.00-0.01 Intoxicated 0.080 g/dL or code=ETOH) more Urinalysis [id number] 01:15:00 Test Item Value Reference Range Comments Color (test code=COLOR) Yellow Yellow,Straw,Pl yellow Clarity (test code=CLAR) Clear Clear Specific [place] (test code=SPGR) 1.024 1.001-1.035 pH (test code=PH) [...] Exam (test code=MEXAM) Not indicated CBC with [id number] 01:15:00 Test Item Value Reference Range Comments [...] Lymph Abs (test code=ALYMPH) 3.0 K/cumm 0.5-4.6 Tift Abs (test code=AMONO) 0.7 K/cumm 0.0-1.2 Eos Abs (test code=AEOS) 0.61 K/cumm 0.00-0.74 Baso Abs (test code=ABASO) 0.1 K/cumm 0.00-0.21
[2018-07-26 12:46] LABS: Absolute Lymphocytes (CBC) 3.6 K/uL (0.7-4.9); Absolute Monocytes 1.1 K/uL (0.1-1.3); Absolute Neutrophil 7.4 K/uL (1.8-8.0); Basophils % 0.5 % (0-1.3); Hematocrit 44.2 % (39.6-49.0); Lymphocytes % 28.5 % (15.3-44.8); MPV 8.7 fL (7.6-11.3); Monocytes % 8.8 % (3.3-12.3); RBC Red Blood Cell Count 5.08 M/uL (4.33-5.43)
[2018-07-26] MEDS ORDERED: CEFTRIAXONE/SWI 1gm 1 GM/10 ML SYR ONE (12:55)
[2018-07-26 13:03] LABS: Protime INR 1.03
[2018-07-26 13:11] LABS: ALT/SGPT 18 U/L (12-78); AST/SGOT 18 U/L (15-37); Alkaline Phosphatase 89 U/L (45-117); BUN Blood Urea Nitrogen 16 mg/dL (7-18); Bicarbonate 28 mmol/L (21-32); Bilirubin Direct 0.1 mg/dL (0-0.2); Bilirubin Total 0.6 mg/dL (0.2-1.0); CKMB Creatine Kinase MB 3.2 ng/mL (0.3-3.6); Creatine Phosphokinase 100 U/L (39-308); Glucose Level 91 mg/dL (74-106); Lipase 122 U/L (73-393); Potassium 3.4 mmol/L (3.5-5.1); Protein, Total 7.8 g/dL (6.4-8.2); Sodium Level 143 mmol/L (136-145); Troponin (Emerg Dept Use Only) < 0.02 ng/mL (0.0-0.045)
[2018-07-26] MEDS ORDERED: KETOROLAC 30 MG/ML INJ ONE (13:23)
[2018-07-26] MEDS ORDERED: NA CHLORIDE 0.9% 1,000 ML ONE (13:27)
[2018-07-26 14:15] LABS: Urine Bacteria <20 /HPF (NONE SEEN); Urine RBC <5 /HPF (NONE SEEN)
[2018-07-26 14:16] LABS: Urine Culture Reflex Order NOT NEEDED
[2018-07-26 14:28] LABS: Urine Blood NEGATIVE (NEG); Urine Glucose NEGATIVE (NEG); Urine Protein 1+ (NEG)
--- NOTE | 2018-07-26 14:49 | RAD REPORT ---
EXAM DESCRIPTION: [place] Single [facility]07/26/2018 1:40 pm CLINICAL HISTORY: Cough COMPARISON: August 2017 CT chest FINDINGS: Previously described right lung nodule is not clearly seen on this exam but could be misse d secondary to its small size. Please refer to that report for recommendation. The lungs appear clear of acute infiltrate. Heart is normal size
--- NOTE | 2018-07-26 16:04 | EDPHYS ---
Physician Documentation [facility] Name: Gildardo López Age: 32 yrs Sex: Male : 1985 Arrival Date: 07/26/2018 Time: 11:49 Bed 5 Private MD: ED Physician Travis Small HPI: 07/26 15:09 This 32 yrs old Male presents to ER via EMS with complaints of Shortness Of kdr Breath, Cough, Chest Pain - with cough. 15:09 The patient has shortness of breath at rest, with light activity. Onset: The kdr symptoms/episode began/occurred gradually, 1 week(s) ago. Duration: The symptoms are continuous, and are steadily getting worse. The patient's shortness of breath is aggravated by coughing, exertion, light activity, is alleviated by rest, sitting up. Associated signs and symptoms: Pertinent positives: non-productive cough, dizziness. Severity of symptoms: At their worst the symptoms were moderate in the emergency department the symptoms are unchanged. The patient has experienced similar episodes in the past, a few times. The patient has not recently seen a physician. Historical: - Allergies: 11:53 No Known Allergies; sv - Home Meds: 11:53 clonazepam 2 mg Oral tab Q8H [Active]; gabapentin 300 mg Oral cap 3 times per day sv [Active]; Seroquel 400 mg Oral tab 2 times per day [Active]; trazodone 100 mg Oral tab [Active]; - PMHx: 11:53 Anxiety; Schizophrenia; Seizures; sv - PSHx: 11:53 Sinus; Appendectomy; sv - Immunization history:: Adult Immunizations up to date. - Ebola Screening: : No symptoms or risks identified at this time. - Social history:: Smoking status: Patient/guardian denies using tobacco. ROS: 15:09 Constitutional: Negative for fever, chills, and weight loss, Eyes: Negative for injury, kdr pain, redness, and discharge, Neck: Negative for injury, pain, and swelling, Cardiovascular: Negative for chest pain, palpitations, and edema, Abdomen/GI: Negative for abdominal pain, nausea, vomiting, diarrhea, and constipation, Back: Negative for injury and pain, : Negative for injury, bleeding, discharge, and swelling, MS/Extremity: Negative for injury and deformity, Skin: Negative for injury, rash, and discoloration, Neuro: Negative for headache, weakness, numbness, tingling, and seizure activity. Psych: Negative for depression, anxiety, suicide ideation, homicidal ideation, and hallucinations, Allergy/Immunology: Negative for hives, rash, and allergies, Endocrine: Negative for neck swelling, polydipsia, polyuria, polyphagia, and marked weight changes, Hematologic/Lymphatic: Negative for swollen nodes, abnormal bleeding, and unusual bruising. 15:09 Respiratory: Positive for cough, with no reported sputum. Exam: 16:41 Constitutional: This is a well developed, well nourished patient who is awake, alert, kdr and in no acute distress. Head/Face: Normocephalic, atraumatic. Eyes: Pupils equal round and reactive to light, extra-ocular motions intact. Lids and lashes normal. Conjunctiva and sclera are non-icteric and not injected. Cornea within normal limits. Periorbital areas with no swelling, redness, or edema. Neck: Trachea midline, no thyromegaly or masses palpated, and no cervical lymphadenopathy. Supple, full range of motion without nuchal rigidity, or vertebral point tenderness. No Meningismus. Chest/axilla: Normal chest wall appearance and motion. Nontender with no deformity. No lesions are appreciated. Cardiovascular: Regular rate and rhythm with a normal S1 and S2. No gallops, murmurs, or rubs. Normal PMI, no JVD. No pulse deficits. Respiratory: Lungs have equal breath sounds bilaterally, clear to auscultation and percussion. No rales, rhonchi or wheezes noted. No increased work of breathing, no retractions or nasal flaring. Abdomen/GI: Soft, non-tender, with normal bowel sounds. No distension or tympany. No guarding or rebound. No evidence of tenderness throughout. Back: No spinal tenderness. No costovertebral tenderness. Full range of motion. Skin: Warm, dry with normal turgor. Normal color with no rashes, no lesions, and no evidence of cellulitis. MS/ Extremity: Pulses equal, no cyanosis. Neurovascular intact. Full, normal range of motion. Neuro: Awake and alert, GCS 15, oriented to person, place, time, and situation. Cranial nerves II-XII grossly intact. Motor strength 5/5 in all extremities. Sensory grossly intact. Cerebellar exam normal. Normal gait. Psych: Awake, alert, with orientation to person, place and time. Behavior, mood, and affect are within normal limits. Vital Signs: 11:54 BP 109 / 88; Pulse 80; Resp 18; Temp 98.3; Pulse Ox 96% ; Weight 94.35 kg; Height 5 ft. sv 6 in. (167.64 cm); Pain 7/10; 13:41 BP 112 / 78; Pulse 75; Resp 16; Pulse Ox 98% ; sv 14:30 BP 106 / 80; Pulse 82; Resp 16; Pulse Ox 99% ; sv 16:34 BP 110 / 78; Pulse 88; Resp 16; Pulse Ox 99% ; sv 11:54 Body Mass Index 33.57 (94.35 kg, 167.64 cm) sv MDM: 16:03 Patient medically screened. kdr 16:40 Immunization status:. Data reviewed: vital signs, nurses notes, lab test result(s), kdr radiologic studies. Counseling: I had a detailed discussion with the patient and/or guardian regarding: the historical points, exam findings, and any diagnostic results supporting the discharge/admit diagnosis, lab results, radiology results, the need for outpatient follow up. 07/26 12:26 Order name: Basic Metabolic Panel; Complete Time: 13:28 [facility] 07/26 12:26 Order name: Blood Culture Adult (2) [facility] 07/26 12:26 Order name: CBC with Diff [facility] 07/26 12:26 Order name: Ckmb; Complete Time: 13:28 [facility] 07/26 12:26 Order name: CPK; Complete Time: 13:28 [facility] 07/26 12:26 Order name: Lactate; Complete Time: 13:28 [facility] 07/26 12:26 Order name: LFT's; Complete Time: 13:28 [facility] 07/26 12:26 Order name: Lipase; Complete Time: 13:28 [facility] 07/26 12:26 Order name: Procalcitonin; Complete Time: 14:12 [facility] 07/26 12:26 Order name: Protime (+inr); Complete Time: 13:28 [facility] 07/26 12:26 Order name: Ptt, Activated; Complete Time: 13:28 [facility] 07/26 12:26 Order name: Troponin (emerg Dept Use Only); Complete Time: 13:28 [facility] 07/26 12:26 Order name: Urine Microscopic Only; Complete Time: 14:53 [facility] 07/26 14:03 Order name: Urine Dipstick--Ancillary (enter results) kb 07/26 12:26 Order name: Chest Single View XRAY; Complete Time: 14:53 [facility] 07/26 12:26 Order name: Accucheck; Complete Time: 12:57 [facility] 07/26 12:26 Order name: Cardiac monitoring; Complete Time: 12:32 [facility] 07/26 12:26 Order name: EKG - Nurse/Tech; Complete Time: 12:32 [facility] 07/26 12:26 Order name: IV Saline Lock - Large Bore; Complete Time: 12:39 [facility] 07/26 12:26 Order name: Labs collected and sent; Complete Time: 12:39 [facility] 07/26 12:26 Order name: O2 Per Protocol; Complete Time: 12:39 [facility] 07/26 12:26 Order name: O2 Sat Monitoring; Complete Time: 12:39 [facility] 07/26 12:26 Order name: Urine Dipstick-Ancillary (obtain specimen); Complete Time: 12:57 [facility] 07/26 14:28 Order name: Urine Dipstick-Ancillary; Complete Time: 14:53 EDMS Administered Medications: 12:35 Not Given (Other Intervention Used): Rocephin - (cefTRIAXone) 1 grams IVPB once over 30 ss mins; (mix in 50 mL NS) 12:50 Drug: NS 0.9% (30 ml/kg) 30 ml/kg Route: IV; Rate: bolus; Site: right antecubital; sg 14:00 Follow up: Response: No adverse reaction; IV Status: Completed infusion sv 12:57 Drug: Rocephin 1 grams Route: IV; Rate: calculated rate; Site: right antecubital; sg 13:00 Follow up: Response: No adverse reaction; IV Status: Completed infusion; IV Intake: 10mlsv Disposition: 07/26/18 16:03 Discharged to Home. Impression: Bronchitis, not specified as acute or chronic. - Condition is Fair. - Discharge Instructions: Acute Bronchitis, [id number], Cough, Adult. - Prescriptions for Tessalon Perles 100 mg Oral Capsule - take 1 capsule by ORAL route every 8 hours As needed; 15 capsule. Zithromax Z- Aguilar 250 mg Oral Tablet - take 1 tablet by ORAL route as directed for 5 days Day 1 - take two (2) tablets one time. Day 2, 3, 4 , 5 take one (1) tablet once daily.; 6 tablet. Albuterol Sulfate 90 mcg/actuation - inhale 1-2 puff by INHALATION route every 4-6 hours; 1 Inhaler. - Medication Reconciliation Form, Thank You Letter, Antibiotic Education, Prescription Opioid Use form. - Follow up: Private Physician; When: 2 - 3 days; Reason: If symptoms return, Further diagnostic work-up, Recheck today's complaints, Continuance of care, Re-evaluation by your physician. - Problem is new. - Symptoms have improved. Signatures: Dispatcher [employer] EDMS Annette Omalley RN RN sv Carmelo New RN RN sg Travis Small MD MD [facility] Claire Flores RN RN ss Corrections: (The following items were deleted from the chart) 16:36 16:03 07/26/2018 16:03 Discharged to Home. Impression: Bronchitis, not specified as sv acute or chronic. Condition is Fair. Forms are Medication Reconciliation Form, Thank You Letter, Antibiotic Education, Prescription Opioid Use. Follow up: Private Physician; When: 2 - 3 days; Reason: If symptoms return, Further diagnostic work-up, Recheck today's complaints, Continuance of care, Re-evaluation by your physician. Problem is new. Symptoms have improved. kdr
--- NOTE | 2018-07-26 16:04 | ER ---
Nurse's Notes [facility] Name: Gildardo López Age: 32 yrs Sex: Male : 1985 Arrival Date: 07/26/2018 Time: 11:49 Bed 5 Private MD: Diagnosis: Bronchitis, not specified as acute or chronic Presentation: 07/26 11:49 Presenting complaint: EMS states: SOB, productive cough, chest pain with cough x 1 sv week. Transition of care: patient was not received from another setting of care. Onset of symptoms was July 19, 2018. Note Pt reports that he was exposed to black mold and he has a growth on his lungs that was confirmed by a CT. Care prior to arrival: None. 11:49 Method Of Arrival: EMS: [facility] sv 11:49 Acuity: AYE 3 sv 11:56 Risk Assessment: Do you want to hurt yourself or someone else? Patient reports no sv desire to harm self or others. Initial Sepsis Screen: Does the patient meet any 2 criteria? No. Patient's initial sepsis screen is negative. Does the patient have a suspected source of infection? Yes: Productive cough/pneumonia. Triage Assessment: 11:55 General: Appears in no apparent distress. comfortable, Behavior is calm, cooperative, sv appropriate for age. Pain: Complains of pain in anterior aspect of right upper chest, anterior aspect of left upper chest, right breast and left breast Pain currently is 7 out of 10 on a pain scale. Neuro: Level of Consciousness is awake, alert, obeys commands, Oriented to person, place, time, situation, Moves all extremities. Full function Gait is steady. Respiratory: Reports shortness of breath cough that is productive, Respiratory effort is even, unlabored, Respiratory pattern is regular, symmetrical, Onset: The symptoms/episode began/occurred 1 week ago, the patient has mild shortness of breath. Derm: Skin is pink, warm \T\ dry. Historical: - Allergies: 11:53 No Known Allergies; sv - Home Meds: 11:53 clonazepam 2 mg Oral tab Q8H [Active]; gabapentin 300 mg Oral cap 3 times per day sv [Active]; Seroquel 400 mg Oral tab 2 times per day [Active]; trazodone 100 mg Oral tab [Active]; - PMHx: 11:53 Anxiety; Schizophrenia; Seizures; sv - PSHx: 11:53 Sinus; Appendectomy; sv - Immunization history:: Adult Immunizations up to date. - Ebola Screening: : No symptoms or risks identified at this time. - Social history:: Smoking status: Patient/guardian denies using tobacco. Screenin:54 Abuse screen: Denies threats or abuse. Denies injuries from another. Nutritional sv screening: No deficits noted. Tuberculosis screening: No symptoms or risk factors identified. Fall Risk None identified. Assessment: 12:20 Reassessment: pt requesting hydrocodone for pain the anterior chest wall. sg notified, v/o for Toradol 30mg IVP x1, pt informed. pt denies the toradol, continues to request the PO hydrocodone. Will continue to monitor. 13:41 Reassessment: Patient appears in no apparent distress at this time. Patient and/or sv family updated on plan of care and expected duration. Pain level reassessed. Patient is alert, oriented x 3, equal unlabored respirations, skin warm/dry/pink. 15:22 Reassessment: Patient appears in no apparent distress at this time. No changes from sv previously documented assessment. Patient and/or family updated on plan of care and expected duration. Pain level reassessed. Patient is alert, oriented x 3, equal unlabored respirations, skin warm/dry/pink. 16:20 Reassessment: Went to discharge pt but pt asking to speak with MD regarding results. sv 16:34 Reassessment: Patient appears in no apparent distress at this time. No changes from sv previously documented assessment. Patient and/or family updated on plan of care and expected duration. Pain level reassessed. Patient is alert, oriented x 3, equal unlabored respirations, skin warm/dry/pink. Vital Signs: 11:54 BP 109 / 88; Pulse 80; Resp 18; Temp 98.3; Pulse Ox 96% ; Weight 94.35 kg; Height 5 ft. sv 6 in. (167.64 cm); Pain 7/10; 13:41 BP 112 / 78; Pulse 75; Resp 16; Pulse Ox 98% ; sv 14:30 BP 106 / 80; Pulse 82; Resp 16; Pulse Ox 99% ; sv 16:34 BP 110 / 78; Pulse 88; Resp 16; Pulse Ox 99% ; sv 11:54 Body Mass Index 33.57 (94.35 kg, 167.64 cm) sv ED Course: 11:40 Initial lab(s) drawn, by me, held in ED. Inserted saline lock: 20 gauge in right sg antecubital area, using aseptic technique. Blood collected. 11:49 Patient arrived in ED. sv 11:52 Travis Small MD is Attending Physician. kdr 11:52 Triage completed. sv 11:54 Arm band placed on. sv 11:54 Patient has correct armband on for positive identification. Placed in gown. Call light sv in reach. Pulse ox on. NIBP on. Door closed. Head of bed elevated. 12:10 EKG done, by technical administrator. reviewed by Travis Small MD. tc 12:23 Annette Omalley, MILIND is Primary Nurse. sv 13:39 X-ray completed. Portable x-ray completed in exam room. Patient tolerated procedure sw well. Note: PT WAS PUTTING TOBACCO PRODUCT/ DIP IN MOUTH UPON ARRIVAL FOR CXR. 13:43 Chest Single View XRAY In Process Unspecified. EDMS 14:39 Urine Dipstick--Ancillary (enter results) Sent. sv 16:35 No provider procedures requiring assistance completed. IV discontinued, intact, sv bleeding controlled, No redness/swelling at site. Pressure dressing applied. Administered Medications: 12:35 Not Given (Other Intervention Used): Rocephin - (cefTRIAXone) 1 grams IVPB once over 30 ss mins; (mix in 50 mL NS) 12:50 Drug: NS 0.9% (30 ml/kg) 30 ml/kg Route: IV; Rate: bolus; Site: right antecubital; sg 14:00 Follow up: Response: No adverse reaction; IV Status: Completed infusion sv 12:57 Drug: Rocephin 1 grams Route: IV; Rate: calculated rate; Site: right antecubital; sg 13:00 Follow up: Response: No adverse reaction; IV Status: Completed infusion; IV Intake: 10mlsv Intake: 13:00 IV: 10ml; Total: 10ml. sv Outcome: 16:03 Discharge ordered by . kdr 16:35 Discharged to home ambulatory. sv 16:35 Condition: stable 16:35 Discharge instructions given to patient, Instructed on discharge instructions, follow up and referral plans. medication usage, Demonstrated understanding of instructions, follow-up care, medications, Prescriptions given X 3. 16:36 Patient left the ED. sv Signatures: Dispatcher [employer] Annette Walker RN RN sv Gay, Steven, RN RN sg Rittger, Kevin, MD MD [facility] Geri Chaparro, [facility] Chloe Clark Shelby RN ss
[2018-07-26 16:41] VITALS: TEMP 98.3
[2018-07-26 16:44] VITALS: O2SAT 99
[2018-07-26 16:45] VITALS: BP 110/78
--- NOTE | 2018-07-27 07:02 | EKG ---
Test Date: 2018-07-26 Test Time: 12:01:42 [employer] Duty Manager: TC MEASUREMENT RESULTS: Intervals: Rate: 82 WA: 140 QRSD: 86 QT: 376 QTc: 439 [place]: P: 48 WA: 140 QRS: 26 T: 4 INTERPRETIVE STATEMENTS: Normal sinus rhythm Normal ECG Electronically Signed On 07-27-18 06:53:50 FINISH REPAIR WORKER by David Gastelum
== END 2018-07-26 16:36 | disposition home or self-care (01) ==
LOC: ER 11:48
DX: J40 Bronchitis, not specified as acute or chronic (principal); F41.9 Anxiety disorder, unspecified; F20.9 Schizophrenia, unspecified; R56.9 Unspecified convulsions
CPT/HCPCS: 36415; 71045; 80048; 80076; 81003; 81015; 82550; 82553; 83605; 83690; 84145; 84484; 85025; 85610; 85730; 87040; 93005; 96365; 96375; 99284; J0696; J7030

== ENCOUNTER 2019-09-22 20:22 | Emergency (ER) | payer BC ==
--- OUTSIDE RECORDS SUMMARY | 2019-09-22 20:26 | XMS REPORT ---
:1985 [facility] [address] [place] [address] Care Team Providers Name Role Phone UNKNOWN, [...] Department ID 2017-05-22 2017-06-01 Inpatient E [facility] [id number] 03:01:00 13:18:00 NAMAN Craven M.D. Results Test [...] to the Main Lab for Analysis. RPR, [id number] 14:24:00 Test Item Value Reference Range Comments RPR (test code=RPR) Non-Reactive Non-Reactive Thyroid Stimulating Hormone (TSH)2017-09-26 09:39:00 Test Item Value Reference Range Comments TSH (test code=TSH) 0.54 mIU/mL 0.270-4.200 Lipid [id number] 09:31:00 Test Item Value Reference Range Comments Cholesterol (test 212 mg/dL 0-200 code=CHOL) Triglycerides (test 113 mg/dL 9-200 code=TRIG) HDL (test code=HDL) 41 mg/dL 40-60 Chol/HDL (test 5.2 Ratio 0.0-5.0 code=CHOLPHDL) LDL, Calculated (test 148 0-130 (NOTE)RISK OF HEART code=LDLC) DISEASEPublished by [place] Heart AssociationAnalyte Optimal Boderline Increased RiskCHOL <200 200-239 >240TRIG <150 150-199 >200HDL Male: >60 <40HDL Female: >60 <50LDL <100 130-159 >160LDL NEAR OPTIMAL IS 100-129 VLDL (test code=VLDL) 23 mg/dL 5-40 LDL/HDL (test code=LDLPHDL) 4 [id number] 15:13:00 Test Item Value Reference Range Comments [...] THC (test code=THC) Negative Negative Comprehensive Metabolic [id number] 14:37:00 Test Item Value Reference Range Comments [...] race is not provided, and the patient isAfrican-Puerto Rican, multiply by 1.212. If sex is not provided, and thepatient is female, multiply by 0.742. Results for patients <18 years ofage have not been validated by the MDRD study and should be interpretedwith caution.eGFR Result Interpretation:eGFR > or=60 is in the Normal RangeeGFR < 60 may mean kidney diseaseeGFR < 15 may mean kidney failureRanges recommended by the National Kidney Foundation,http://nkdep.nih .gov Urinalysis [id number] 14:25:00 Test Item Value Reference Range Comments Color (test code=COLOR) Yellow Yellow,Straw,Pl yellow Clarity (test code=CLAR) Clear Clear Specific On[place] (test code=SPGR) 1.017 1.001-1.035 pH (test code=PH) [...] Exam (test code=MEXAM) Not indicated CBC with [id number] 14:20:00 Test Item Value Reference Range Comments [...] Lymph Abs (test code=ALYMPH) 1.7 K/cumm 0.5-4.6 [place] Abs (test code=AMONO) 0.3 K/cumm 0.0-1.2 Eos Abs (test code=AEOS) 0.07 K/cumm 0.00-0.74 Baso Abs (test code=ABASO) 0.0 K/cumm 0.00-0.21 RPR, [id number] 14:15:00 Test Item Value Reference Range Comments RPR (test code=RPR) Non-Reactive Non-Reactive Thyroid Stimulating Hormone (TSH)2017-05-22 13:03:00 Test Item Value Reference Range Comments TSH (test code=TSH) 1.67 mIU/mL 0.270-4.200 Lipid [id number] 12:55:00 Test Item Value Reference Range Comments Cholesterol (test 234 mg/dL 0-200 code=CHOL) Triglycerides (test 185 mg/dL 9-200 code=TRIG) HDL (test code=HDL) 51 mg/dL 40-60 Chol/HDL (test 4.6 Ratio 0.0-5.0 code=CHOLPHDL) LDL, Calculated (test 146 0-130 (NOTE)RISK OF HEART code=LDLC) DISEASEPublished by [place] Heart AssociationAnalyte Optimal [place] Increased RiskCHOL <200 200-239 >240TRIG <150 150-199 >200HDL Male: >60 <40HDL Female: >60 <50LDL <100 130-159 >160LDL NEAR OPTIMAL IS 100-129 VLDL (test code=VLDL) 37 mg/dL 5-40 LDL/HDL (test code=LDLPHDL) 3 [id number] 01:55:00 Test Item Value Reference Range Comments [...] (test <0.01 g/dL 0.00-0.01 code=ETOHU) Comprehensive Metabolic [id number] 01:30:00 Test Item Value Reference Range Comments [...] race is not provided, and the patient isAfrican-Puerto Rican, multiply by 1.212. If sex is not provided, and thepatient is female, multiply by 0.742. Results for patients <18 years ofage have not been validated by the MDRD study and should be interpretedwith caution.eGFR Result Interpretation:eGFR > or=60 is in the Normal RangeeGFR < 60 may mean kidney diseaseeGFR < 15 may mean kidney failureRanges recommended by the National Kidney Foundation,http://nkdep.nih .gov Alcohol/Ethanol, [id number] 01:21:00 Test Item Value Reference Range Comments Alcohol, Ethyl (test <0.01 g/dL 0.00-0.01 Intoxicated 0.080 g/dL or code=ETOH) more Urinalysis [id number] 01:15:00 Test Item Value Reference Range Comments Color (test code=COLOR) Yellow Yellow,Straw,Pl yellow Clarity (test code=CLAR) Clear Clear Specific Ono (test code=SPGR) 1.024 1.001-1.035 pH (test code=PH) [...] Exam (test code=MEXAM) Not indicated CBC with [id number] 01:15:00 Test Item Value Reference Range Comments [...] Lymph Abs (test code=ALYMPH) 3.0 K/cumm 0.5-4.6 [place] Abs (test code=AMONO) 0.7 K/cumm 0.0-1.2 Eos Abs (test code=AEOS) 0.61 K/cumm 0.00-0.74 Baso Abs (test code=ABASO) 0.1 K/cumm 0.00-0.21
[2019-09-22 20:57] LABS: Absolute Lymphocytes (CBC) 1.6 K/uL (0.7-4.9); Basophils % 0.5 % (0-1.3); Hematocrit 42.9 % (39.6-49.0); Lymphocytes % 14.2 % (15.3-44.8); MPV 8.1 fL (7.6-11.3); RBC Red Blood Cell Count 4.89 M/uL (4.33-5.43)
[2019-09-22 21:05] LABS: Protime INR 1.06
[2019-09-22 21:13] LABS: Urine Blood NEGATIVE (NEG); Urine Glucose NEGATIVE (NEG); Urine Protein NEGATIVE (NEG)
[2019-09-22 21:18] LABS: ALT/SGPT 23 U/L (12-78); AST/SGOT 16 U/L (15-37); Albumin 4.1 g/dL (3.4-5.0); Alkaline Phosphatase 58 U/L (45-117); BUN Blood Urea Nitrogen 16 mg/dL (7-18); Bicarbonate 25 mmol/L (21-32); Bilirubin Direct 0.1 mg/dL (0-0.2); Bilirubin Total 0.4 mg/dL (0.2-1.0); Glucose Level 97 mg/dL (74-106); Potassium 3.4 mmol/L (3.5-5.1); Protein, Total 7.4 g/dL (6.4-8.2); Sodium Level 140 mmol/L (136-145)
[2019-09-22 21:24] LABS: Barbiturates NEGATIVE (NEGATIVE); Benzodiazepines NEGATIVE (NEGATIVE); Cocaine NEGATIVE (NEGATIVE); METHAMPHETAM NEGATIVE (NEGATIVE); Methadone NEGATIVE (NEGATIVE); Opiates NEGATIVE (NEGATIVE); Phencyclidine NEGATIVE (NEGATIVE); THC Cannibis NEGATIVE (NEGATIVE)
[2019-09-22] MEDS ORDERED: POTASSIUM 25 MEQ EFFERV TAB ONE (21:41)
--- NOTE | 2019-09-22 22:19 | ER ---
Nurse's Notes [facility] Name: Gildardo López Age: 33 yrs Sex: Male : 1985 Arrival Date: 09/22/2019 Time: 20:34 Bed 15 Private MD: Diagnosis: Paranoid schizophrenia Presentation: 09/21 20:30 Chief complaint: EMS states: patient complaining all over the body like a electric rr5 shock for 3 days now. feels constipated and unable to urinate. 20:30 Coronavirus screen: Patient denies fever greater than 100.4F, cough, shortness of rr5 breath, or difficulty breathing. Proceed with normal triage process. Ebola Screen: Patient negative for fever greater than or equal to 101.5 degrees Fahrenheit, and additional compatible Ebola Virus Disease symptoms Patient denies exposure to infectious person. Patient denies travel to an Ebola-affected area in the 21 days before illness onset. Initial Sepsis Screen: Does the patient meet any 2 criteria? No. Patient's initial sepsis screen is negative. Does the patient have a suspected source of infection? No. Patient's initial sepsis screen is negative. Risk Assessment: Do you want to hurt yourself or someone else? Patient reports no desire to harm self or others. Note patient stated he left the house because he saw some strange people inside the house. I smelled like a chemical, I cant take it anymore. I don't know if someone wants to hurt me. my whole house is full painted with camouflage. Onset of symptoms was September 19, 2019. Transition of care: hotel. 20:30 Method Of Arrival: EMS: [facility] rr5 20:30 Acuity: AYE 2 rr5 Historical: - Allergies: 20:42 No Known Allergies; rr5 - Home Meds: 20:42 clonazepam 2 mg Oral tab Q8H [Active]; gabapentin 300 mg Oral cap 3 times per day rr5 [Active]; Seroquel 400 mg Oral tab 2 times per day [Active]; trazodone 100 mg Oral tab [Active]; - PMHx: 20:42 Anxiety; Schizophrenia; Seizures; rr5 - PSHx: 20:42 None; rr5 - Immunization history:: Adult Immunizations not up to date. - Social history:: Smoking status: unknown Patient/guardian denies using alcohol, street drugs. Screenin:30 Abuse screen: Denies threats or abuse. Denies injuries from another. Nutritional rr5 screening: No deficits noted. Tuberculosis screening: No symptoms or risk factors identified. Fall Risk IV access (20 points). Mental Status- Oriented to own ability (0 pts). Total Cisneros Fall Scale indicates No Risk (0-24 pts). Assessment: 21:00 General: Appears in no apparent distress. comfortable, Behavior is calm, cooperative, rr5 Reports someone is in my house, I don't know if they want to hurt me. I smell something like chemical inside my house that is why I left. 21:00 Pain: Complains of pain in body Pain does not radiate. Pain currently is 8 out of 10 on rr5 a pain scale. Quality of pain is described as electric Pain began gradually, Is intermittent. Neuro: Level of Consciousness is awake, alert, obeys commands, Oriented to person, place, time, situation, Appropriate for age Reports my pupils will dilate then constrict all of a sudden.. Cardiovascular: Capillary refill < 3 seconds Patient's skin is warm and dry. Respiratory: Airway is patent Respiratory effort is even, unlabored, Respiratory pattern is regular, symmetrical. GI: Reports constipation. : Reports inability to void. EENT: No signs and/or symptoms were reported regarding the EENT system. Derm: Skin is intact, is healthy with good turgor, Skin temperature is warm. Musculoskeletal: Circulation, motion, and sensation intact. Capillary refill < 3 seconds. 21:30 Reassessment: valuables surrendered to security. rr5 22:30 Reassessment: spoke to [facility] nurse "karen" gave report. he said to call dr. elise rr5 [phone] for the dr estephanie ochoa report. ED provider aware. 22:40 Reassessment: Patient appears in no apparent distress at this time. nurse to nurse has sg been called to [facility] at [facility]. 22:59 Reassessment: Patient appears in no apparent distress at this time. Patient and/or rr5 family updated on plan of care and expected duration. Pain level reassessed. Patient is alert, oriented x 3, equal unlabored respirations, skin warm/dry/pink. calm no complaints made. 23:03 Reassessment: patient stated he stopped his maintenance medicine a month ago. not able rr5 to refill his medicines. my clonazepam was changed to alprazolam. patient is willing to be transfer to a facility as he verbalized its good to be in a program and to be back on track. 09/22 00:10 Reassessment: Patient appears in no apparent distress at this time. Patient is alert, rr5 oriented x 3, equal unlabored respirations, skin warm/dry/pink. endorsed to [facility], awake conscious and coherent not in distress, calm cooperative. vitally stable breathing spontaneously at room air no complaints made. 00:10 Reassessment: valuables returned to patient witnessed by EMS patient account his money. rr5 Vital Signs: 09/21 20:30 BP 146 / 84; Pulse 98; Resp 19; Temp 98.8; Pulse Ox 96% ; Weight 92.99 kg; Height 5 ft. rr5 8 in. (172.72 cm); Pain 8/10; 21:33 BP 121 / 70; Pulse 90; Resp 16; Pulse Ox 99% on R/A; rr5 09/22 00:00 BP 125 / 86; Pulse 82; Resp 16; Temp 98.5; Pulse Ox 97% ; rr5 09/21 20:30 Body Mass Index 31.17 (92.99 kg, 172.72 cm) rr5 ED Course: 09/21 20:30 Maintain EMS IV. Dressing intact. Good blood return noted. Site clean \\T\\ dry. Gauge \\T\\ rr 5 site: G20 left AC. 20:34 Patient arrived in ED. rr5 20:35 Aldo Anthony PA is PHCP. cp 20:35 Turner Pizarro MD is Attending Physician. cp 20:41 Triage completed. rr5 20:43 Arm band placed on right wrist. rr5 20:45 Javier Vergara RN is Primary Nurse. rr5 21:00 Safety Checks: Personal items have been removed. The door is open or patient has been rr5 placed in a hallway bed/chair. Sitter present at this time. 21:00 Patient has correct armband on for positive identification. Placed in gown. Bed in low rr5 position. 09/22 00:16 No provider procedures requiring assistance completed. IV discontinued, intact, rr5 bleeding controlled, No redness/swelling at site. Pressure dressing applied. Administered Medications: 09/21 21:40 Drug: Potassium Effervescent Tablet 25 mEq Route: PO; mg2 23:01 Follow up: Response: No adverse reaction rr5 Outcome: 22:18 ER care complete, transfer ordered by MD. jaimes 09/22 00:16 Transferred by ground EMS to other acute care facility: [facility]. Transfer form rr5 completed. Condition: stable Instructed on the need for transfer. 00:18 Patient left the ED. rr5 Signatures: Carmelo New RN RN sg Aldo Anthony PA PA cp Gardose, Michele, RN RN mg2 Javier Vergara RN RN rr5
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
[2019-09-23 00:52] VITALS: BP 125/86; TEMP 98.5; O2SAT 97
--- NOTE | 2019-09-24 05:27 | EKG ---
Test Date: 2019-09-22 Test Time: 20:53:47 Tray Worker: RR MEASUREMENT RESULTS: Intervals: Rate: 90 DC: 144 QRSD: 84 QT: 336 QTc: 411 Snelling: P: 41 DC: 144 QRS: 11 T: -8 INTERPRETIVE STATEMENTS: Normal sinus rhythm Normal ECG Compared to ECG 07/26/2018 12:01:42 No significant changes Electronically Signed On 09-24-19 05:25:11 CDT by Eze Ochoa
== END 2019-09-23 00:18 ==
LOC: ER 20:22
DX: F20.0 Paranoid schizophrenia (principal); R52 Pain, unspecified; G40.909 Epilepsy, unspecified, not intractable, without status epilepticus
CPT/HCPCS: 36415; 80048; 80076; 80307; 80320; 80329; 81003; 85025; 85610; 85730; 93005; 99285